=== PATIENT | female | born 1960 | race Caucasian/White ===

== ENCOUNTER 2017-02-05 16:59 | Inpatient (IN) | payer BC ==
[~2017-02-05] VITALS: Ht 154.9 cm; Wt 114.1 kg
--- NOTE | 2017-02-05 17:35 | EMERGENCY ROOM VISIT NOTE ---
History Report prepared by Yoibe: Carmen Noriega Under the Supervision of: Dr. Ramakrishna Torres M.D. First contact with patient: 17:17 Chief Complaint: HYPERTENSION Stated Complaint: ELEVATED BP, COUGH, DOUBLE VISION History of Present Illness The patient is a 56 year old female who presents to the Emergency Room with complaints of constant hypertension and tightness in her chest beginning a week ago. The patient has a history of asthmatic bronchitis and she believes her symptoms to be a result of her this. She notes an episode of double vision in her left eye that lasted 5 minutes a couple days ago. The patient says had now other symptoms during this episode. She is having a difficulty breathing, tightness in her chest, and coughing with exertion. She denies any numbness, weakness, difficulty swallowing, fever, chills, or swelling in her legs. The patient was sent to the ED from [facility]. She has a history of hypertension and denies any recent travel or falls. She is supposed to be on a medication for blood pressure but does not remember take her medicines. She is asymptomatic at present. No focal numbness or weakness. Source of History: patient Onset: a week ago Position: chest Timing: constant Modifying Factors (Worsening): exertion Associated Symptoms: + cough, No fevers, No chills, No weakness, No numbness Note: Pt denies difficulty swallowing, chills, or swelling in her legs. Review of Systems See HPI for pertinent positives & negatives. A total of 10 systems reviewed and were otherwise negative. Past Medical & Surgical Medical Problems: (1) Chest pain (2) HTN (hypertension) (3) Hypertensive urgency Old medical records were reviewed. Nurse's notes were reviewed and I agree with. Hypertension. Denies history cardiac disease known Family History FH: HTN (hypertension) FH: diabetes mellitus Social History Smoking Status: Never Smoker Smokeless Tobacco Use: No Alcohol Use: none Occupation Status: employed Current/Historical Medications No Active Prescriptions or Reported Meds Allergies Coded Allergies: Neomycin (Unverified Allergy, Unknown, RASH, 02/05/17) Physical Exam Vital Signs Date Time Temp Pulse Resp B/P (MAP) Pulse Ox O2 Delivery O2 Flow Rate FiO2 02/05/17 19:33 210/94 95 Room Air 02/05/17 19:08 80 232/112 96 Room Air 02/05/17 18:31 83 18 218/107 98 Room Air 02/05/17 17:23 96 02/05/17 17:03 36.9 86 18 226/119 95 Room Air Physical Exam General: Well developed well appearing middle aged female in no acute distress, breathing comfortably on room air. Normal speech HEENT: Normal cephalic atraumatic. Pupils are equal round and reactive to light. Extraocular movements are intact. Oropharynx is pink with moist mucous membranes. No swelling of the mouth lips or tongue. Neck: Supple with a midline trachea. No meningeal signs or stiffness, no JVD or bruits. No Stridor. Chest: Clear to auscultation bilaterally. No wheezes or rhonchi. No increased work of breathing. Heart: regular rate and rhythm. Abdomen: Soft nontender, nondistended without rebound guarding or rigidity. Extremities: No cyanosis clubbing or edema. No calf tenderness or assymetry Spine/Back. Non tender to palpation. No CVA tenderness Skin: Good turgor without rashes. Neurologic exam: Cranial nerves two through 12 are intact. Motor and sensation are intact and symmetrical throughout. Medical Decision & Procedures ER Provider Diagnostic Interpretation: Radiology results as stated below per my review and radiologist interpretation: SINGLE VIEW CHEST FINDINGS: An AP, portable, upright chest radiograph is obtained. No prior studies are available for comparison at the time of dictation. The examination is degraded by portable technique, large body habitus, and patient rotation. The heart is top normal for projection. The mediastinal contour is unremarkable. The lungs and pleural spaces are clear. No pneumothorax is seen. The bony thorax is grossly intact. IMPRESSION: No acute cardiopulmonary abnormality. Electronically signed by: Edgar Alva M.D. CT OF THE HEAD WITHOUT CONTRAST FINDINGS: Exam is mildly compromised by motion artifact. No acute intracranial hemorrhage, midline shift or mass effect is present. Ventricular system is normal. Basilar cisterns are patent. There are no extra axial collections. Marie-white differentiation is maintained. There are no findings to suggest acute dural sinus thrombosis or acute territorial infarct. Left sphenoid sinus is largely opacified contains air-fluid level. There is also mucosal thickening and secretions within the left frontal and ethmoid sinuses. There are no significant calvarial abnormalities. IMPRESSION: 1. No acute intracranial findings. 2. Left sphenoid, ethmoid and frontal sinusitis, possibly acute. Electronically signed by: Kaushik Doll M.D. Laboratory Results 02/05/17 17:40 Red Blood Count 4.69, Mean Corpuscular Volume 87.0, Mean Corpuscular Hemoglobin 28.6, Mean Corpuscular Hemoglobin Concent 32.8, Mean Platelet Volume 9.7, Neutrophils (%) (Auto) 55.3, Lymphocytes (%) (Auto) 35.5, Monocytes (%) (Auto) 6.4, Eosinophils (%) (Auto) 2.6, Basophils (%) (Auto) 0.1, Neutrophils # (Auto) 4.03, Lymphocytes # (Auto) 2.59, Monocytes # (Auto) 0.47, Eosinophils # (Auto) 0.19, Basophils # (Auto) 0.01 02/05/17 17:40 Test 02/05/17 17:40 02/05/17 17:50 White Blood Count 7.30 K/uL (4.8-10.8) Red Blood Count 4.69 M/uL (4.2-5.4) Hemoglobin 13.4 g/dL (12.0-16.0) Hematocrit 40.8 % (37-47) Mean Corpuscular Volume 87.0 fL (80-100) Mean Corpuscular Hemoglobin 28.6 pg (25-34) Mean Corpuscular Hemoglobin Concent 32.8 g/dl (32-36) Platelet Count 222 K/uL (130-400) Mean Platelet Volume 9.7 fL (7.4-10.4) Neutrophils (%) (Auto) 55.3 % Lymphocytes (%) (Auto) 35.5 % Monocytes (%) (Auto) 6.4 % Eosinophils (%) (Auto) 2.6 % Basophils (%) (Auto) 0.1 % Neutrophils # (Auto) 4.03 K/uL (1.4-6.5) Lymphocytes # (Auto) 2.59 K/uL (1.2-3.4) Monocytes # (Auto) 0.47 K/uL (0.11-0.59) Eosinophils # (Auto) 0.19 K/uL (0-0.5) Basophils # (Auto) 0.01 K/uL (0-0.2) RDW Standard Deviation 47.0 fL (36.4-46.3) RDW Coefficient of Variation 14.7 % (11.5-14.5) Immature Granulocyte % (Auto) 0.1 % Immature Granulocyte # (Auto) 0.01 K/uL (0.00-0.02) Anion Gap 6.0 mmol/L (3-11) Est Creatinine Clear Calc Drug Dose 89.4 ml/min Estimated GFR () 91.4 Estimated GFR (Non- 78.8 BUN/Creatinine Ratio 15.4 (10-20) Calcium Level 8.7 mg/dl (8.5-10.1) Total Bilirubin 0.5 mg/dl (0.2-1) Direct Bilirubin 0.1 mg/dl (0-0.2) Aspartate Amino Transf (AST/SGOT) 24 U/L (15-37) Alanine Aminotransferase (ALT/SGPT) 33 U/L (12-78) Alkaline Phosphatase 74 U/L (45-117) Total Protein 7.6 gm/dl (6.4-8.2) Albumin 3.8 gm/dl (3.4-5.0) Lipase 140 U/L (73-393) Thyroid Stimulating Hormone (TSH) 6.730 uIu/ml (0.300-4.500) Bedside Troponin I < 0.030 ng/ml (0-0.045) Laboratory studies as stated above per my review. Medications Administered Medications (Trade) Dose Ordered Sig/Kenney Route Start Time Stop Time Status Last Admin Dose Admin Clonidine HCl (Catapres Tab) 0.1 mg NOW ONCE PO 02/05/17 19:30 02/05/17 19:31 DC 02/05/17 19:32 0.1 MG ECG Indication: other (chest tightness) Rate (beats per minute): 78 Rhythm: normal sinus Findings: no acute ischemic change, no ectopy, other (Poor R-wave progression) Comparison ECG Date: no prior available ED Course 1718: Past medical records reviewed. The patient was evaluated in room B6, and a complete history and physical examination were performed. 1802: I reevaluated the patient she is asymptomatic and headed to CT scan. 1844: The patients blood pressure is still elevated but otherwise she is asymptotic. I recommended her staying in the hospital and she is considering it. 1906: The patient's blood pressure is still high. She is calling her family to update them about her potential admission. 1930: Clonidine HCl 0.1 mg PO. 1947: Discussed the patient's case with Dr. Thibodeaux. The patient will be evaluated for further management. 1952: Upon reevaluation, the patient is resting. I discussed the results and treatment plan with the patient. She verbalized agreement of the treatment plan. The patient will be evaluated for further management. Medical Decision Differential diagnosis includes but is not limited too: hypertension, cardiac disease, CVA, infection, electrolyte metabolic abnormality. This patient comes in as described above. She was placed in room B6. She's been having intermittent chest pain shortness breath with exertion. Shows a have high blood pressure specimen medication but does not remember to take it. She is asymptomatic at present she had an episode yesterday where she felt like she had some blurry vision more so on her left eye. IV access established,EKG was obtained , multiple blood testing was obtained . her blood pressure did remain elevated here and she was ultimately given clonidine 0.1 mg IV to help slowly bring it down EKG does not show any definite acute ischemic changes CAT scan of her head is unremarkable she is nothing to suggest congestive heart failure pneumonia or pneumothorax initial cardiac biomarkers are unremarkable. I do think she needs to be admitted for further treatment and evaluation of her chest pain to rule out a cardiac disease and further treatment of her blood pressure. I did consult the [facility] so saw her in the ER. Medication Reconcilliation Current Medication List: was personally reviewed by me Blood Pressure Screening Patient's blood pressure: Elevated blood pressure Patient will be admitted for further treatment Consults Time Called: 1939 Consulting Physician: Dr. Amarjit Orellana Returned Call: 1947 Discussed the patient's case. The patient will be evaluated for further management. Impression Primary Impression: Chest pain Additional Impression: HTN (hypertension) Scribe Attestation The scribe's documentation has been prepared under my direction and personally reviewed by me in its entirety. I confirm that the note above accurately reflects all work, treatment, procedures, and medical decision making performed by me. Departure Information Dispostion Being Evaluated By Hospitalist Prescriptions No Active Prescriptions or Reported Meds Referrals Bonilla Celis M.D. (PCP) Patient Instructions [facility] Problem Qualifiers
[2017-02-05 17:56] LABS: BASO % 0.1 %; BASO ABS # 0.01 K/uL (0-0.2); COMPLETE YES; EOS % 2.6 %; HEMATOCRIT 40.8 % (37-47); IG% 0.1 %; LYMPH % 35.5 %; LYMPH ABS # 2.59 K/uL (1.2-3.4); MEAN CORPUSCULAR HEMOGLOBIN 28.6 pg (25-34); MEAN CORPUSCULAR HGB CONC 32.8 g/dl (32-36); MEAN PLATELET VOLUME 9.7 fL (7.4-10.4); MONO % 6.4 %; NEUT % 55.3 %; PLATELET COUNT 222 K/uL (130-400); RED BLOOD COUNT 4.69 M/uL (4.2-5.4)
--- NOTE | 2017-02-05 17:59 | DIAGNOSTIC IMAGING REPORT ---
SINGLE VIEW CHEST CLINICAL HISTORY: Atypical chest pain. FINDINGS: An AP, portable, upright chest radiograph is obtained. No prior studies are available for comparison at the time of dictation. The examination is degraded by portable technique, large body habitus, and patient rotation. The heart is top normal for projection. The mediastinal contour is unremarkable. The lungs and pleural spaces are clear. No pneumothorax is seen. The bony thorax is grossly intact. IMPRESSION: No acute cardiopulmonary abnormality. Electronically signed by: Edgar Alva M.D. 02/05/2017 5:57 PM Dictated Date/Time: 02/05/2017 5:56 PM
[2017-02-05 18:19] LABS: BUN/CREATININE RATIO 15.4 (10-20); CALCIUM 8.7 mg/dl (8.5-10.1); CREATININE 0.83 mg/dl (0.60-1.20); POTASSIUM 3.3 mmol/L (3.5-5.1)
--- NOTE | 2017-02-05 18:22 | DIAGNOSTIC IMAGING REPORT ---
CT OF THE HEAD WITHOUT CONTRAST CLINICAL HISTORY: Episode of blurry vision in left eye. COMPARISON STUDY: No previous studies for comparison. CT DOSE: 601.98 mGy.cm TECHNIQUE: Helical axial images of the head were obtained without IV contrast. Automated exposure control was utilized for the study. A dose lowering technique was utilized adhering to the principles of ALARA. FINDINGS: Exam is mildly compromised by motion artifact. No acute intracranial hemorrhage, midline shift or mass effect is present. Ventricular system is normal. Basilar cisterns are patent. There are no extra axial collections. Marie-white differentiation is maintained. There are no findings to suggest acute dural sinus thrombosis or acute territorial infarct. Left sphenoid sinus is largely opacified contains air-fluid level. There is also mucosal thickening and secretions within the left frontal and ethmoid sinuses. There are no significant calvarial abnormalities. IMPRESSION: 1. No acute intracranial findings. 2. Left sphenoid, ethmoid and frontal sinusitis, possibly acute. Electronically signed by: Kaushik Doll M.D. 02/05/2017 6:20 PM Dictated Date/Time: 02/05/2017 6:13 PM
[2017-02-05 18:30] LABS: THYROID STIMULATING HORMONE 6.73 uIu/ml (0.300-4.500)
[2017-02-05] MEDS ORDERED: CLONIDINE HCL 0.1 MG TAB PO ONE (19:30)
[2017-02-05] MEDS ORDERED: POLYETHYLENE (MIRALAX) 17 GM PACK PO PRN (20:30)
[2017-02-05] MEDS ORDERED: ALUMINUM/MAGNESIUM/SIMETH (MAALOX MAX) 30 ML UDC PO PRN (20:30)
[2017-02-05] MEDS ORDERED: ACETAMINOPHEN 325 MG TAB PO PRN (20:30)
[2017-02-05] MEDS ORDERED: ONDANSETRON INJ 2 MG/ML 2 ML VIAL IV PRN (20:30)
[2017-02-05] MEDS ORDERED: POTASSIUM CHLORIDE 10 MEQ TABCR PO STA (20:37)
[2017-02-05] MEDS ORDERED: IV FLUIDS COMPLETED PRN (20:45)
[2017-02-05 21:00] VITALS: BP 211/115; PULSE 90; TEMP 37; O2SAT 92; Ht 154.9 cm; Wt 114.1 kg
--- NOTE | 2017-02-05 21:27 | History and Physical ---
History & Physical Date & Time of Service: Feb 05, 2017 at 21:20 Chief Complaint: Chest Pain, Hypertensive Urgency Primary Care Physician: Bonilla Celis M.D. History of Present Illness Source: patient Patient is a 56yo female who presents to the hospital after being seen at urgent care today and being found to have severely elevated BP. She was referred to the hospital for furhter evaluation. She states she went to urgent care today because of an incident yesterday where she had blurry vision that last a few minutes and she was worried she would go blind. She states she was seen by her PCP over 6 months ago and was started on BP meds but she did not take them after the first 6 weeks and has not followed up. She states she didn' t take the meds because she kept forgetting. Patient states she feels fine right now and denies any complaints except when she exerts herself, then with exertion she feels chest pain and SOB. She denies any diaphoresis, palpitations , N/V, MENDOZA, dizziness, lightheadedness or visual changes today. She states she thought she had bronchitis from allergies/hay exposure after [place] fair but has not had wheezing for several weeks now. She has occasional non productive cough. She denies any nasal symptoms. Past Medical/Surgical History PMHx: HTN SurgHx: Tubal ligation knee surgery breast lumpectomy Family History FH: HTN (hypertension) FH: diabetes mellitus Social History Smoking Status: Never Smoker Smokeless Tobacco Use: No Occupational Status: employed Multi-Drug Resistant Organisms History of MDRO: No Allergies Coded Allergies: Neomycin (Unverified Allergy, Unknown, RASH, 02/05/17) Home Medications No Active Prescriptions or Reported Meds Review of Systems Full 10 systems were reviewed; please see HPI for pertinent positives and negatives. Physical Exam Vital Signs Date Time Temp Pulse Resp B/P (MAP) Pulse Ox O2 Delivery O2 Flow Rate FiO2 02/05/17 20:51 36.9 80 18 187/87 95 02/05/17 20:35 187/87 02/05/17 19:33 210/94 95 Room Air 02/05/17 19:08 80 232/112 96 Room Air 02/05/17 18:31 83 18 218/107 98 Room Air 02/05/17 17:23 96 02/05/17 17:03 36.9 86 18 226/119 95 Room Air General Appearance: WD/WN, no apparent distress Head: normocephalic, atraumatic Eyes: PERRL, EOMI ENT: hearing grossly normal Neck: supple, no JVD, no carotid bruits, trachea midline Respiratory/Chest: lungs clear, normal breath sounds, no respiratory distress, + decreased breath sounds Cardiovascular: regular rate, rhythm, no edema, no gallop, no JVD, no murmur Abdomen/GI: normal bowel sounds, non tender, soft, no organomegaly Back: normal inspection, no CVA tenderness Extremities/Musculoskelatal: no calf tenderness, normal capillary refill Neurologic/Psych: no motor/sensory deficits, alert, normal mood/affect, oriented x 3 Skin: normal color, warm/dry, no rash Diagnostics Laboratory Results Results Past 24 Hours Test 02/05/17 17:40 02/05/17 17:50 02/05/17 21:08 Range/Units White Blood Count 7.30 4.8-10.8 K/uL Red Blood Count 4.69 4.2-5.4 M/uL Hemoglobin 13.4 12.0-16.0 g/dL Hematocrit 40.8 37-47 % Mean Corpuscular Volume 87.0 80-100 fL Mean Corpuscular Hemoglobin 28.6 25-34 pg Mean Corpuscular Hemoglobin Concent 32.8 32-36 g/dl Platelet Count 222 130-400 K/uL Mean Platelet Volume 9.7 7.4-10.4 fL Neutrophils (%) (Auto) 55.3 % Lymphocytes (%) (Auto) 35.5 % Monocytes (%) (Auto) 6.4 % Eosinophils (%) (Auto) 2.6 % Basophils (%) (Auto) 0.1 % Neutrophils # (Auto) 4.03 1.4-6.5 K/uL Lymphocytes # (Auto) 2.59 1.2-3.4 K/uL Monocytes # (Auto) 0.47 0.11-0.59 K/uL Eosinophils # (Auto) 0.19 0-0.5 K/uL Basophils # (Auto) 0.01 0-0.2 K/uL RDW Standard Deviation 47.0 36.4-46.3 fL RDW Coefficient of Variation 14.7 11.5-14.5 % Immature Granulocyte % (Auto) 0.1 % Immature Granulocyte # (Auto) 0.01 0.00-0.02 K/uL Sodium Level 138 136-145 mmol/L Potassium Level 3.3 3.5-5.1 mmol/L Chloride Level 104 98-107 mmol/L Carbon Dioxide Level 28 21-32 mmol/L Anion Gap 6.0 3-11 mmol/L Blood Urea Nitrogen 13 7-18 mg/dl Creatinine 0.83 0.60-1.20 mg/dl Est Creatinine Clear Calc Drug Dose 89.4 ml/min Estimated GFR () 91.4 Estimated GFR (Non- 78.8 BUN/Creatinine Ratio 15.4 10-20 Random Glucose 89 70-99 mg/dl Calcium Level 8.7 8.5-10.1 mg/dl Total Bilirubin 0.5 0.2-1 mg/dl Direct Bilirubin 0.1 0-0.2 mg/dl Aspartate Amino Transf (AST/SGOT) 24 15-37 U/L Alanine Aminotransferase (ALT/SGPT) 33 12-78 U/L Alkaline Phosphatase 74 45-117 U/L Total Protein 7.6 6.4-8.2 gm/dl Albumin 3.8 3.4-5.0 gm/dl Lipase 140 73-393 U/L Thyroid Stimulating Hormone (TSH) 6.730 0.300-4.500 uIu/ml Bedside Troponin I < 0.030 0-0.045 ng/ml Impression Assessment and Plan HTN URGENCY: -received a dose of clonidine in the ER -will start with lisinopril and titrate dose upwards as needed -obtain TTE -serial CM -check T4 CHEST PAIN: with exertion -serial CM -TTE -no EKG changes, repeat in AM -monitor in Tele -Consult Cardiology POSSIBLE HYPOTHYROIDISM: -elevated TSH, awaiting free T4 -no prior history Level of Care Telemetry VTE Prophylaxis VTE Risk Assessment Done? Y/N: Yes Risk Level: Moderate
[2017-02-05] MEDS: ENOXAPARIN 40 MG/0.4 ML SYR SC SCH (22:30)
[2017-02-05 23:09] VITALS: BP 195/104; PULSE 79; TEMP 36.8; O2SAT 94
[2017-02-06] VITALS (8 sets, daily range): BP systolic 156–187; BP diastolic 80–98; PULSE 64–88; TEMP 36.7–37; O2SAT 95–98
[2017-02-06] MEDS ORDERED: LISINOPRIL 5 MG TAB PO STA (00:38)
[2017-02-06 02:47] LABS: HEMATOCRIT 38.6 % (37-47); MEAN CELL VOLUME 88.1 fL (80-100); MEAN CORPUSCULAR HEMOGLOBIN 28.8 pg (25-34); MEAN CORPUSCULAR HGB CONC 32.6 g/dl (32-36); MEAN PLATELET VOLUME 9.9 fL (7.4-10.4); PLATELET COUNT 232 K/uL (130-400); RED BLOOD COUNT 4.38 M/uL (4.2-5.4); WHITE BLOOD COUNT 7.17 K/uL (4.8-10.8)
[2017-02-06 03:08] LABS: BUN/CREATININE RATIO 12.6 (10-20); CALCIUM 8.5 mg/dl (8.5-10.1); CREATININE 0.86 mg/dl (0.60-1.20); POTASSIUM 3.6 mmol/L (3.5-5.1)
[2017-02-06 03:11] LABS: CKMB/CK RATIO 0.3 (0-3.0)
[2017-02-06 03:18] LABS: CHOLESTEROL/HDL RATIO 3.8; THYROID STIMULATING HORMONE 7.87 uIu/ml (0.300-4.500)
[2017-02-06] MEDS: ASPIRIN 81 MG ECTAB PO SCH (08:10)
[2017-02-06] MEDS ORDERED: LISINOPRIL 10 MG TAB PO SCH (09:00)
[2017-02-06 11:06] LABS: CKMB/CK RATIO 0.4 (0-3.0)
[2017-02-06] MEDS ORDERED: LISINOPRIL 10 MG TAB PO ONE (11:39)
--- NOTE | 2017-02-06 12:05 | ECHOCARDIOGRAM REPORT ---
*NOTICE TO RECEIVING LIBERTARIAN AGENCY This information is strictly Confidential and protected under [place] law. [place] law prohibits you from making any further disclosure of this information unless further disclosure is expressly permitted by the written consent of the person to whom it pertains or is authorized by law. A general authorization for the release of medical or other information is not sufficient for this purpose. Hospital accepts no responsibility if the information is made available to any other person, INCLUDING THE PATIENT. Interpretation Summary * Name: CORBY MILLS Study Date: 02/06/2017 11:17 AM BP: 162/80 mmHg * Patient Location: [facility] HR: 79 * : 1960 (M/d/yyyy) Gender: Female Height: 61 in * Age: 56 yrs Ethnicity: CA Weight: 254 lb * Ordering Physician: Jeanine Maki * Referring Physician: Ivy No * Performed By: Sally Ybarra RCS * * Reason For Study: Chest pain * BSA: 2.1 m2 * -- Conclusions -- * Normal LV chamber size with mild concentric LVH. * Normal LV systolic function, EF 60-65%. * No segmental left ventricular wall motion abnormalities are noted. * Grade I diastolic dysfunction. * No significant valvular pathology. Procedure Details * Left Ventricle The left ventricle is normal in size. There is mild concentric left ventricular hypertrophy. Ejection Fraction = 60-65%. Left ventricular systolic function is normal. No segmental left ventricular wall motion abnormalities are noted. The left ventricular wall motion is normal. * Right Ventricle The right ventricular cavity size is normal (basal dimension <4.2 cm in right ventricular apical 4-chamber view). The right ventricular systolic function is normal as assessed by tricuspid annular plane systolic excursion (TAPSE) (normal >1.5 cm). * Atria The left atrial size is normal. Right atrial size is normal. No ASD detected; PFO is not assessed. * Mitral Valve The mitral valve is normal in structure and function. * Tricuspid Valve The tricuspid valve is normal in structure and function. * Aortic Valve The aortic valve is normal in structure and function. * Pulmonic Valve The pulmonary valve is not well seen, but the Doppler examination is normal without significant regurgitation or stenosis. * Great Vessels The aortic root is normal size. * Pericardium/Pleural Epicardial fat pad present. * Left Ventricular Diastolic Function Grade I diastolic dysfunction, (abnormal relaxation pattern). * * MMode 2D Measurements and Calculations * IVSd 1.1 cm * * LVIDd 5.2 cm * LVIDs 2.5 cm * LVPWd 1.2 cm * * IVS/LVPW 0.97 * FS 52.2 % * EDV(Teich) 128.8 ml * ESV(Teich) 21.9 ml * EF(Teich) 83.0 % * * EDV(cubed) 139.7 ml * ESV(cubed) 15.2 ml * EF(cubed) 89.1 % * * LV mass(C)d 235.7 grams * LV mass(C)dI 112.7 grams/m\S\2 * * SV(Teich) 107.0 ml * SI(Teich) 51.2 ml/m\S\2 * SV(cubed) 124.4 ml * SI(cubed) 59.5 ml/m\S\2 * * Ao root diam 2.8 cm * Ao root area 6.0 cm\S\2 * * LVOT diam 2.0 cm * LVOT area 3.3 cm\S\2 * * EDV(MOD-sp4) 100.4 ml * ESV(MOD-sp4) 40.5 ml * EF(MOD-sp4) 59.7 % * * EDV(MOD-sp2) 67.5 ml * ESV(MOD-sp2) 25.5 ml * EF(MOD-sp2) 62.3 % * * SV(MOD-sp4) 59.9 ml * SI(MOD-sp4) 28.7 ml/m\S\2 * * SV(MOD-sp2) 42.1 ml * SI(MOD-sp2) 20.1 ml/m\S\2 * * * Doppler Measurements and Calculations * MV E max padmini 63.6 cm/sec * MV A max padmini 96.5 cm/sec * * MV E/A 0.66 * * MV dec time 0.24 sec * * Ao V2 max 125.9 cm/sec * Ao max PG 6.3 mmHg * Ao max PG (full) 2.6 mmHg * BRIAN(V,A) 2.5 cm\S\2 * BRIAN(V,D) 2.5 cm\S\2 * * LV V1 max PG 3.7 mmHg * * LV V1 max 96.7 cm/sec * * * *
--- NOTE | 2017-02-06 12:22 | CARDIOLOGY CONSULTATION ---
DATE OF CONSULTATION: 02/06/2017 CONSULTATION REQUESTED BY: Dr. Christina. REASON FOR CONSULTATION: Uncontrolled hypertension with hypertensive urgency. HISTORY OF PRESENT ILLNESS: Mrs. Easton is a very pleasant 56-year-old woman who has never been seen by cardiology before. She presented to [facility] with a report of uncontrolled hypertension. The patient states her symptoms started several weeks ago, when she started developing a little bit of bronchitis . She did not think much of it; however, 2 days prior to presentation, she developed some blurred vision while she was sitting working on the computer. At that time, she mentioned it to her family and they made her go and see a physician. She went to urgent care, her blood pressure was significantly elevated and she was directed to the Emergency Department. Upon presentation to the Emergency Department here at [facility], her blood pressure was 226/119. EKG and cardiac enzymes were obtained and they were unremarkable and she was admitted to telemetry for further monitoring. She was also started on lisinopril 10 mg for blood pressure control. Currently, she states that she feels fine, but upon further questioning, she does admit that she has been getting occasional chest tightness with exertion over the last several weeks. She states that it is nothing severe. It is just something that she happened to notice, but was not too concerned. She states whenever it occurred, she feels her chest as tight. She stopped to catch her breath for a few minutes and will be able to carry on her way. Otherwise, she denies any significant shortness of breath, palpitations, lightheadedness, dizziness or syncope. Of note, the patient was seen by her primary care physician, Dr. Celis approximately 6 months ago and she was placed on blood pressure medications. She does not remember the name of the medication. She states that she took the pill for about 6 weeks, but then after that just forgot to take it anymore. PAST SURGICAL HISTORY: 1. Tubal ligation. 2. Knee surgery. 3. Breast lumpectomy. MEDICAL ILLNESSES: 1. Hypertension. 2. Obesity. FAMILY HISTORY: Remarkable for father who had underwent CABG in his early 60s. SOCIAL HISTORY: Denies any alcohol, tobacco or recreational drug use. She is . She lives at home with her . She has 4 children. 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 She does not exercise. ALLERGIES: NEOMYCIN. MEDICATIONS AT HOME. Denies. PHYSICAL EXAMINATION: VITALS: Temperature 36.8, pulse 69, respiratory rate 12, and blood pressure 156/88. GENERAL: Awake, alert, and oriented x3, in no acute distress. HEENT: Normocephalic and atraumatic. Pupils equal, round, and reactive to light and accommodation. Extraocular muscles intact. Anicteric sclerae. Moist mucous membranes. NECK: No JVD and no bruit. CARDIOVASCULAR: Regular. Positive S4. Normal S1 and S2. No S3. No murmurs or rubs. PULMONARY: Clear to auscultation bilaterally. No rales, rhonchi, or wheezing. ABDOMEN: Bowel sounds x4. Soft. No rebound, guarding, or tenderness. No organomegaly. EXTREMITIES: No clubbing, cyanosis or edema. +2 pedal pulses bilaterally. SKIN: Warm and dry. TEST RESULTS: A 12-lead EKG performed in the Emergency Department independently reviewed at this time shows normal sinus rhythm at 78 beats per minute, normal axis, normal intervals, and poor R-wave progression across the precordium. No significant change compared to previous study of 2001. LABORATORY STUDIES OF SIGNIFICANCE: Troponin negative x3. CPK of 214 followed by 240. Total cholesterol 154, LDL 88, HDL 41, and triglycerides 123. Sodium 138, potassium 3.6, BUN 11, and creatinine 0.9. IMPRESSION: 1. Hypertensive urgency with blurred vision. 2. Uncontrolled hypertension. 3. Obesity. 4. Chest discomfort with exertion. RECOMMENDATIONS: It was my pleasure to see Mrs. Easton in consultation today. From a cardiac standpoint, I agree that she is suffering from hypertensive urgency and given the fact that her blood pressure is still not controlled, I will double her lisinopril to 20 mg daily. I would like to see her blood pressure controlled before she is discharged to home and will likely need to keep her another night. Otherwise, given her chest discomfort with exertion, I do believe she would benefit from an ischemic evaluation; however, we will hold off on doing it in the setting of hypertensive urgency given the fact that exercise would obviously cause her blood pressure to significantly increase. So instead, we will get her blood pressure under control at this time, discharge her to home and have her follow up as an outpatient in 1-2 weeks for an ischemic evaluation. She has also been started on aspirin and she does not appear to be in need for statin. KIA
[2017-02-06] MEDS ORDERED: ALBUTEROL 0.083% NEBU SOLN 3 ML VIAL INH ONE (14:30)
[2017-02-06] MEDS ORDERED: GUAIFENESIN/CODEINE 200MG/20MG 10ML UDC PO PRN (14:30)
[2017-02-06] MEDS: ENOXAPARIN 40 MG/0.4 ML SYR SC SCH (21:36)
[2017-02-06] MEDS: ALBUTEROL 0.083% NEBU SOLN 3 ML VIAL INH PRN (23:09)
--- NOTE | 2017-02-06 23:39 | Progress Note ---
Medicine Progress Note Date & Time of Visit: Feb 06, 2017 at 13:18. 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 Objective Last 8 Hrs Date Time Temp Pulse Resp B/P (MAP) Pulse Ox O2 Delivery O2 Flow Rate FiO2 02/06/17 12:00 Room Air 02/06/17 11:45 37.0 64 16 171/83 (112) 95 Room Air 02/06/17 08:04 36.8 69 20 156/88 (110) 97 Room Air 02/06/17 08:00 Room Air Physical Exam: GEN: obese, in no acute distress, alert and appropriate HEENT: NC/AT, PERRL, normal sclerae, MMM CARDIO: reg rate, S1/2 heard without m/g/r, no JVD, no edema LUNGS: CTA bilaterally, no crackles, rales or wheezes, good diaphragmatic excursion ABD: soft, non-tender, non-distended, no rebound or guarding, +BS EXTREMITY: RP and DP palpable 2+ bilat, no LE swelling or edema, extremities are warm and well-perfused NEURO: CN 2-12 grossly intact MUSC: 5/5 strength throughout, no focal deficits SKIN: warm and dry Laboratory Results: 02/06/17 02:32 02/06/17 02:32 Test 02/05/17 17:40 02/05/17 17:50 02/05/17 21:26 02/06/17 02:32 Immature Granulocyte % (Auto) 0.1 % White Blood Count 7.30 K/uL (4.8-10.8) Red Blood Count 4.69 M/uL (4.2-5.4) 4.38 M/uL (4.2-5.4) Hemoglobin 13.4 g/dL (12.0-16.0) Hematocrit 40.8 % (37-47) Mean Corpuscular Volume 87.0 fL (80-100) 88.1 fL (80-100) Mean Corpuscular Hemoglobin 28.6 pg (25-34) 28.8 pg (25-34) Mean Corpuscular Hemoglobin Concent 32.8 g/dl (32-36) 32.6 g/dl (32-36) Platelet Count 222 K/uL (130-400) Mean Platelet Volume 9.7 fL (7.4-10.4) 9.9 fL (7.4-10.4) Neutrophils (%) (Auto) 55.3 % Lymphocytes (%) (Auto) 35.5 % Monocytes (%) (Auto) 6.4 % Eosinophils (%) (Auto) 2.6 % Basophils (%) (Auto) 0.1 % Neutrophils # (Auto) 4.03 K/uL (1.4-6.5) Lymphocytes # (Auto) 2.59 K/uL (1.2-3.4) Monocytes # (Auto) 0.47 K/uL (0.11-0.59) Eosinophils # (Auto) 0.19 K/uL (0-0.5) Basophils # (Auto) 0.01 K/uL (0-0.2) Immature Granulocyte # (Auto) 0.01 K/uL (0.00-0.02) Total Bilirubin 0.5 mg/dl (0.2-1) Direct Bilirubin 0.1 mg/dl (0-0.2) Aspartate Amino Transf (AST/SGOT) 24 U/L (15-37) Alanine Aminotransferase (ALT/SGPT) 33 U/L (12-78) Alkaline Phosphatase 74 U/L (45-117) Total Protein 7.6 gm/dl (6.4-8.2) Albumin 3.8 gm/dl (3.4-5.0) Lipase 140 U/L (73-393) Bedside Troponin I < 0.030 ng/ml (0-0.045) Prothrombin Time 11.0 SECONDS (9.0-12.0) Prothromb Time International Ratio 1.0 (0.9-1.1) RDW Standard Deviation 47.6 fL (36.4-46.3) RDW Coefficient of Variation 14.7 % (11.5-14.5) Anion Gap 4.0 mmol/L (3-11) Est Creatinine Clear Calc Drug Dose 85.6 ml/min Estimated GFR () 87.5 Estimated GFR (Non- 75.5 BUN/Creatinine Ratio 12.6 (10-20) Calcium Level 8.5 mg/dl (8.5-10.1) Triglycerides Level 123 mg/dl (0-150) Cholesterol Level 154 mg/dl (0-200) HDL Cholesterol 41 mg/dl LDL Cholesterol, Calculated 88 mg/dl VLDL Cholesterol, Calculated 25 mg/dl Cholesterol/HDL Ratio 3.8 Thyroid Stimulating Hormone (TSH) 7.870 uIu/ml (0.300-4.500) Free Thyroxine 0.94 ng/dl (0.80-1.60) Hepatitis C Antibody Screen NEG (NEG) Test 02/06/17 10:24 Total Creatine Kinase 240 U/L (26-192) Creatine Kinase MB 0.9 ng/ml (0.5-3.6) Creatine Kinase MB Ratio 0.4 (0-3.0) Troponin I < 0.015 ng/ml (0-0.045) Last 24 Hours Test 02/05/17 17:40 02/05/17 17:50 02/05/17 21:26 02/06/17 02:32 White Blood Count 7.30 K/uL 7.17 K/uL Red Blood Count 4.69 M/uL 4.38 M/uL Hemoglobin 13.4 g/dL 12.6 g/dL Hematocrit 40.8 % 38.6 % Mean Corpuscular Volume 87.0 fL 88.1 fL Mean Corpuscular Hemoglobin 28.6 pg 28.8 pg Mean Corpuscular Hemoglobin Concent 32.8 g/dl 32.6 g/dl Platelet Count 222 K/uL 232 K/uL Mean Platelet Volume 9.7 fL 9.9 fL Neutrophils (%) (Auto) 55.3 % Lymphocytes (%) (Auto) 35.5 % Monocytes (%) (Auto) 6.4 % Eosinophils (%) (Auto) 2.6 % Basophils (%) (Auto) 0.1 % Neutrophils # (Auto) 4.03 K/uL Lymphocytes # (Auto) 2.59 K/uL Monocytes # (Auto) 0.47 K/uL Eosinophils # (Auto) 0.19 K/uL Basophils # (Auto) 0.01 K/uL RDW Standard Deviation 47.0 fL 47.6 fL RDW Coefficient of Variation 14.7 % 14.7 % Immature Granulocyte % (Auto) 0.1 % Immature Granulocyte # (Auto) 0.01 K/uL Sodium Level 138 mmol/L 138 mmol/L Potassium Level 3.3 mmol/L 3.6 mmol/L Chloride Level 104 mmol/L 104 mmol/L Carbon Dioxide Level 28 mmol/L 30 mmol/L Anion Gap 6.0 mmol/L 4.0 mmol/L Blood Urea Nitrogen 13 mg/dl 11 mg/dl Creatinine 0.83 mg/dl 0.86 mg/dl Est Creatinine Clear Calc Drug Dose 89.4 ml/min 85.6 ml/min Estimated GFR () 91.4 87.5 Estimated GFR (Non- 78.8 75.5 BUN/Creatinine Ratio 15.4 12.6 Random Glucose 89 mg/dl 114 mg/dl Calcium Level 8.7 mg/dl 8.5 mg/dl Total Bilirubin 0.5 mg/dl Direct Bilirubin 0.1 mg/dl Aspartate Amino Transf (AST/SGOT) 24 U/L Alanine Aminotransferase (ALT/SGPT) 33 U/L Alkaline Phosphatase 74 U/L Total Protein 7.6 gm/dl Albumin 3.8 gm/dl Lipase 140 U/L Thyroid Stimulating Hormone (TSH) 6.730 uIu/ml 7.870 uIu/ml Bedside Troponin I < 0.030 ng/ml Prothrombin Time 11.0 SECONDS Prothromb Time International Ratio 1.0 Total Creatine Kinase 214 U/L Creatine Kinase MB 0.7 ng/ml Creatine Kinase MB Ratio 0.3 Troponin I < 0.015 ng/ml Triglycerides Level 123 mg/dl Cholesterol Level 154 mg/dl HDL Cholesterol 41 mg/dl LDL Cholesterol, Calculated 88 mg/dl VLDL Cholesterol, Calculated 25 mg/dl Cholesterol/HDL Ratio 3.8 Free Thyroxine 0.94 ng/dl Hepatitis C Antibody Screen NEG Test 02/06/17 10:24 Total Creatine Kinase 240 U/L Creatine Kinase MB 0.9 ng/ml Creatine Kinase MB Ratio 0.4 Troponin I < 0.015 ng/ml Assessment & Plan 56 yo F with no medical problems who is low risk for CAD presents with elevated blood pressure associated with chest pain with exertion, resolved with rest. 1. Hypertensive urgency-Serial cardiac enzymes were negative. Appreciate Cardiology seeing her. TTE performed and is WNL. Lisinopril started with uptitration. Monitor overnight for response. Plan for stress test as outpatient. 2. Chest pain with exertion-ACS workup negative overnight, requires outpatient stress test for risk stratification. 3. Hypothyroidism-mildly elevated TSH and asymptomatic at this time. Defer to outpatient PCP for recheck/workup/start treatment as necessary 4. Obesity 5. Cough-residual from URI 4 weeks ago. Albuterol neb PRN with T3 PRN for symptom relief. 6, H/o noncompliance with antihypertensives in the past. DVT-Lovenox Full Code [facility]po[facility] Current Inpatient Medications: Current Inpatient Medications Medications (Trade) Dose Ordered Sig/Kenney Route Start Time Stop Time Status Last Admin Dose Admin Enoxaparin Sodium (Lovenox Inj) 40 mg Q24H SC 02/05/17 22:00 03/07/17 21:59 02/05/17 22:30 40 MG Acetaminophen (Tylenol Tab) 650 mg Q4H PRN PO 02/05/17 20:30 03/07/17 20:29 Al Hydrox/Mg Hydrox/Simethicone (Maalox Max Susp) 15 ml Q4H PRN PO 02/05/17 20:30 03/07/17 20:29 Ondansetron HCl (Zofran Inj) 4 mg Q6H PRN IV 02/05/17 20:30 03/07/17 20:29 Aspirin (Ecotrin Tab) 81 mg QAM PO 02/06/17 09:00 03/08/17 08:59 02/06/17 08:10 81 MG Polyethylene (Miralax Powder Packet) 17 gm DAILY PRN PO 02/05/17 20:30 03/07/17 20:29 Miscellaneous (Iv Fluids Completed) 1 ea PRN PRN N/A 02/05/17 20:45 02/05/18 20:44 Lisinopril (Zestril Tab) 20 mg QAM PO 02/07/17 09:00 03/08/17 08:59
[2017-02-07] VITALS (8 sets, daily range): BP systolic 141–191; BP diastolic 82–95; PULSE 59–97; TEMP 36.6–36.8; O2SAT 93–98
[2017-02-07] MEDS: ALBUTEROL 0.083% NEBU SOLN 3 ML VIAL INH PRN ×2 (07:37→19:23)
[2017-02-07] MEDS ORDERED: LISINOPRIL 20 MG TAB PO SCH (08:00)
[2017-02-07] MEDS: ASPIRIN 81 MG ECTAB PO SCH (08:14)
[2017-02-07] MEDS ORDERED: LISINOPRIL 20 MG TAB PO ONE (13:37)
--- NOTE | 2017-02-07 13:43 | Cardiology Follow-Up ---
Subjective Subjective Date of Service: Feb 07, 2017. Pt evaluation today including: conversation w/ patient, physical exam, chart review, lab review, review of studies, review of inpatient medication list Additional Details: Pt seen and examined, states that she feels well. Denies cp, sob, palpitations, lightheadedness or dizziness. Review of Systems Respiratory: No see HPI, No cough, No sputum, No wheezing, No shortness of breath, No dyspnea on exertion, No dyspnea at rest, No hemoptysis, No problem reported Cardiac: No see HPI, No chest pain, No orthopnea, No PND, No edema, No claudication, No palpitations, No problem reported Objective Vital Signs Last Vital Signs Documentation Date Time Temp Pulse Resp B/P (MAP) Pulse Ox O2 Delivery O2 Flow Rate FiO2 02/07/17 13:28 191/95 (127) 02/07/17 10:00 Room Air 02/07/17 07:37 59 14 93 02/07/17 07:20 36.8 Physical Exam: General Appearance: WD/WN, no apparent distress Eyes: bilateral eyes normal inspection, bilateral eyes PERRL, bilateral eyes EOMI ENT: normal ENT inspection, hearing grossly normal, pharynx normal Neck: supple, no adenopathy, thyroid normal, no JVD Respiratory/Chest: chest non-tender, lungs clear, normal breath sounds, no respiratory distress, no accessory muscle use Cardiovascular: regular rate, rhythm, no edema, no JVD, no murmur, + gallop/S4 Abdomen: normal bowel sounds, non tender, soft, no organomegaly, no pulsatile mass Extremities: normal inspection, no pedal edema, no calf tenderness Neurologic/Psychiatric: 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 hypertensive urgency symptoms resolved lisinopril uptitrated yet, bp remains 191/95 will give extra 20mg of lisinopril now on top of this AM's dose would not d/c to home until bp <160 systolic can add amlodipine if needed for further bp control will need bmp in 1 week scheduled for eval with PCP on 02/11, recommend she keep appointment to follow bp also schedule outpatient stress echocardiogram f/u with cardiology office in 1 month
--- NOTE | 2017-02-07 13:54 | Progress Note ---
Medicine Progress Note Date & Time of Visit: Feb 07, 2017 at 13:49. Subjective tolerating pO ambulatory denies chest pain BP 140-150 overnight Objective Last 8 Hrs Date Time Temp Pulse Resp B/P (MAP) Pulse Ox O2 Delivery O2 Flow Rate FiO2 02/07/17 13:38 184/92 (122) 02/07/17 13:28 191/95 (127) 02/07/17 10:00 Room Air 02/07/17 07:37 59 14 93 Room Air 02/07/17 07:20 36.8 68 16 158/84 (108) 96 Room Air Physical Exam: GEN: obese, in no acute distress, alert and appropriate HEENT: NC/AT, normal sclerae, MMM CARDIO: reg rate, S1/2 heard without m/g/r, no JVD, no edema LUNGS: CTA bilaterally, no crackles, rales or wheezes, good diaphragmatic excursion ABD: soft, non-tender, non-distended, no rebound or guarding, +BS EXTREMITY: RP and DP palpable 2+ bilat, no LE swelling or edema, extremities are warm and well-perfused NEURO: CN 2-12 grossly intact MUSC: 5/5 strength throughout, no focal deficits SKIN: warm and dry Laboratory Results: 02/06/17 02:32 02/06/17 02:32 Test 02/05/17 17:40 02/05/17 17:50 02/05/17 21:26 02/06/17 02:32 Immature Granulocyte % (Auto) 0.1 % White Blood Count 7.30 K/uL (4.8-10.8) Red Blood Count 4.69 M/uL (4.2-5.4) 4.38 M/uL (4.2-5.4) Hemoglobin 13.4 g/dL (12.0-16.0) Hematocrit 40.8 % (37-47) Mean Corpuscular Volume 87.0 fL (80-100) 88.1 fL (80-100) Mean Corpuscular Hemoglobin 28.6 pg (25-34) 28.8 pg (25-34) Mean Corpuscular Hemoglobin Concent 32.8 g/dl (32-36) 32.6 g/dl (32-36) Platelet Count 222 K/uL (130-400) Mean Platelet Volume 9.7 fL (7.4-10.4) 9.9 fL (7.4-10.4) Neutrophils (%) (Auto) 55.3 % Lymphocytes (%) (Auto) 35.5 % Monocytes (%) (Auto) 6.4 % Eosinophils (%) (Auto) 2.6 % Basophils (%) (Auto) 0.1 % Neutrophils # (Auto) 4.03 K/uL (1.4-6.5) Lymphocytes # (Auto) 2.59 K/uL (1.2-3.4) Monocytes # (Auto) 0.47 K/uL (0.11-0.59) Eosinophils # (Auto) 0.19 K/uL (0-0.5) Basophils # (Auto) 0.01 K/uL (0-0.2) Immature Granulocyte # (Auto) 0.01 K/uL (0.00-0.02) Total Bilirubin 0.5 mg/dl (0.2-1) Direct Bilirubin 0.1 mg/dl (0-0.2) Aspartate Amino Transf (AST/SGOT) 24 U/L (15-37) Alanine Aminotransferase (ALT/SGPT) 33 U/L (12-78) Alkaline Phosphatase 74 U/L (45-117) Total Protein 7.6 gm/dl (6.4-8.2) Albumin 3.8 gm/dl (3.4-5.0) Lipase 140 U/L (73-393) Bedside Troponin I < 0.030 ng/ml (0-0.045) Prothrombin Time 11.0 SECONDS (9.0-12.0) Prothromb Time International Ratio 1.0 (0.9-1.1) RDW Standard Deviation 47.6 fL (36.4-46.3) RDW Coefficient of Variation 14.7 % (11.5-14.5) Anion Gap 4.0 mmol/L (3-11) Est Creatinine Clear Calc Drug Dose 85.6 ml/min Estimated GFR () 87.5 Estimated GFR (Non- 75.5 BUN/Creatinine Ratio 12.6 (10-20) Calcium Level 8.5 mg/dl (8.5-10.1) Triglycerides Level 123 mg/dl (0-150) Cholesterol Level 154 mg/dl (0-200) HDL Cholesterol 41 mg/dl LDL Cholesterol, Calculated 88 mg/dl VLDL Cholesterol, Calculated 25 mg/dl Cholesterol/HDL Ratio 3.8 Thyroid Stimulating Hormone (TSH) 7.870 uIu/ml (0.300-4.500) Free Thyroxine 0.94 ng/dl (0.80-1.60) Hepatitis C Antibody Screen NEG (NEG) Test 02/06/17 10:24 Total Creatine Kinase 240 U/L (26-192) Creatine Kinase MB 0.9 ng/ml (0.5-3.6) Creatine Kinase MB Ratio 0.4 (0-3.0) Troponin I < 0.015 ng/ml (0-0.045) Assessment & Plan 56 yo F with no medical problems who is low risk for CAD presents with elevated blood pressure associated with chest pain with exertion, resolved with rest. 1. Hypertensive urgency-Serial cardiac enzymes were negative. Appreciate Cardiology seeing her. TTE performed-some evidence of diastolic dysfunction and LVH-discussed with patient. Had plans to leave but then BP went up to >190 systolic. Lisinopril was increased to 40mg daily. Will cont to monitor her one more day to ensure stability. Plan for stress test as outpatient. 2. Chest pain with exertion-ACS workup negative overnight, requires outpatient stress test for risk stratification. 3. Hypothyroidism-mildly elevated TSH and asymptomatic at this time. Defer to outpatient PCP for recheck/workup/start treatment as necessary 4. Obesity 5. Cough-residual from URI 4 weeks ago. Albuterol neb PRN with T3 PRN for symptom relief. 6, H/o noncompliance with antihypertensives in the past. DVT-Lovenox Full Code Dispo-to home in am Azeb Christina DO [facility] Hospitalist Current Inpatient Medications: Current Inpatient Medications Medications (Trade) Dose Ordered Sig/Kenney Route Start Time Stop Time Status Last Admin Dose Admin Enoxaparin Sodium (Lovenox Inj) 40 mg Q24H SC 02/05/17 22:00 03/07/17 21:59 02/06/17 21:36 40 MG Acetaminophen (Tylenol Tab) 650 mg Q4H PRN PO 02/05/17 20:30 03/07/17 20:29 Al Hydrox/Mg Hydrox/Simethicone (Maalox Max Susp) 15 ml Q4H PRN PO 02/05/17 20:30 03/07/17 20:29 Ondansetron HCl (Zofran Inj) 4 mg Q6H PRN IV 02/05/17 20:30 03/07/17 20:29 Aspirin (Ecotrin Tab) 81 mg QAM PO 02/06/17 09:00 03/08/17 08:59 02/07/17 08:14 81 MG Polyethylene (Miralax Powder Packet) 17 gm DAILY PRN PO 02/05/17 20:30 03/07/17 20:29 Miscellaneous (Iv Fluids Completed) 1 ea PRN PRN N/A 02/05/17 20:45 02/05/18 20:44 Lisinopril (Zestril Tab) 20 mg QAM PO 02/07/17 08:00 03/08/17 08:59 02/07/17 08:14 20 MG Albuterol Sulfate (Ventolin 0.083% 2.5MG/3ML Neb) 2.5 mg Q6R PRN INH 02/06/17 14:30 03/08/17 14:29 02/07/17 07:37 2.5 MG Codeine Phosphate/ Guaifenesin (Robitussin-AC Sugar Free Syrup) 10 ml Q6H PRN PO 02/06/17 14:30 03/08/17 14:29
[2017-02-07] MEDS: ENOXAPARIN 40 MG/0.4 ML SYR SC SCH (22:14)
[2017-02-08] VITALS (10 sets, daily range): BP systolic 146–191; BP diastolic 81–117; PULSE 76–116; TEMP 36.7–36.9; O2SAT 96–99
[2017-02-08] MEDS ORDERED: AMLODIPINE BESYLATE 5 MG TAB PO STA (00:07)
[2017-02-08] MEDS: AMLODIPINE BESYLATE 5 MG TAB PO SCH (08:04)
[2017-02-08] MEDS: ASPIRIN 81 MG ECTAB PO SCH (08:04)
--- NOTE | 2017-02-08 08:34 | Discharge Instructions ---
Discharge Instructions Date of Service Feb 08, 2017. Admission Reason for Admission: Chest Pain, Hypertensive Urgency Discharge Discharge Diagnosis / Problem: Hypertensive Urgency, Chest pain Discharge Goals Goal(s): Prevent Disease Progression Activity Recommendations Activity Limitations: per Instructions/Follow-up section . Instructions / Follow-Up Instructions / Follow-Up Please take new medication as instructed daily. Please obtain repeat bloodwork, non-fasting, in 2 weeks. Results should be sent to your primary care physician (PCP). You will also need close follow-up for abnormal thyroid testing in the hospital. Your TSH was slightly elevated and will need to be repeated/ addressed by PCP as outpatient. Please try to restrict salt/sodium intake to <3000mg daily. Reading nutrition labels will help you add this up through the day. Please follow-up with your new PCP as scheduled next week for blood pressure check on the new medication. Please ensure you obtain a stress test at the earliest convenience. This may be ordered through your PCP office. It was a pleasure taking care of you! Call if you have any questions or problems. You can reach a [facility] hospitalist on duty at [facility] 24 hours a day by calling [phone]. Take care of yourself. Azeb Christina DO [facility] Hospitalist Current Hospital Diet Patient's current hospital diet: AHA Diet (Heart Healthy) Discharge Diet Recommended Diet: AHA Diet (Heart Healthy) Procedures Procedures Performed: TTE Pending Studies Studies pending at discharge: no Laboratory Results Lipid Panel Test 02/06/17 02:32 Range/Units Triglycerides Level 123 0-150 mg/dl Cholesterol Level 154 0-200 mg/dl HDL Cholesterol 41 mg/dl Cholesterol/HDL Ratio 3.8 LDL Cholesterol, Calculated 88 mg/dl Medical Emergencies . Who to Call and When: Medical Emergencies: If at any time you feel your situation is an emergency, please call 911 immediately. . Non-Emergent Contact Non-Emergency issues call your: Primary Care Provider . . "Provider Documentation" section prepared by Azeb Christina. . VTE Core Measure Inpt VTE Proph given/why not?: Enoxaparin (Lovenox)SQ
[2017-02-08 08:38] LABS: HEMATOCRIT 41.8 % (37-47); MEAN CELL VOLUME 88.9 fL (80-100); MEAN CORPUSCULAR HEMOGLOBIN 27.2 pg (25-34); MEAN CORPUSCULAR HGB CONC 30.6 g/dl (32-36); MEAN PLATELET VOLUME 10.3 fL (7.4-10.4); PLATELET COUNT 249 K/uL (130-400); WHITE BLOOD COUNT 7.17 K/uL (4.8-10.8)
[2017-02-08] MEDS: LISINOPRIL 40 MG TAB PO SCH (08:56)
[2017-02-08] MEDS: ALBUTEROL 0.083% NEBU SOLN 3 ML VIAL INH PRN (09:03)
[2017-02-08 09:18] LABS: CREATININE 0.93 mg/dl (0.60-1.20)
[2017-02-08] MEDS ORDERED: LSN40 PO (09:42)
[2017-02-08] MEDS ORDERED: AMLO5TAB2 PO (09:42)
[2017-02-08] MEDS ORDERED: AMLODIPINE BESYLATE 5 MG TAB PO ONE (11:15)
[2017-02-08] MEDS ORDERED: LORAZEPAM 0.5 MG TAB PO STA (14:04)
[2017-02-08] MEDS ORDERED: HYDROCHLOROTHIAZIDE 25 MG TAB PO ONE (14:11)
[2017-02-08] MEDS ORDERED: LORAZEPAM 0.5 MG TAB PO PRN (14:15)
--- NOTE | 2017-02-08 18:10 | Progress Note ---
Medicine Progress Note Date & Time of Visit: Feb 08, 2017 at 18:05. Subjective ambulatory asymptomatic spike in systolic BP overnight to 190-given Norvasc with good result was again going to discharge her and repeat BP check was again 190 discussed case with Cards and will add HCTZ and monitor overnight. Objective 02/08/17 08:05 02/06/17 02:32 02/08/17 08:05 Test 02/05/17 17:40 02/05/17 17:50 02/05/17 21:26 02/06/17 02:32 Immature Granulocyte % (Auto) 0.1 % White Blood Count 7.30 K/uL (4.8-10.8) Red Blood Count 4.69 M/uL (4.2-5.4) Hemoglobin 13.4 g/dL (12.0-16.0) Hematocrit 40.8 % (37-47) Mean Corpuscular Volume 87.0 fL (80-100) Mean Corpuscular Hemoglobin 28.6 pg (25-34) Mean Corpuscular Hemoglobin Concent 32.8 g/dl (32-36) Platelet Count 222 K/uL (130-400) Mean Platelet Volume 9.7 fL (7.4-10.4) Neutrophils (%) (Auto) 55.3 % Lymphocytes (%) (Auto) 35.5 % Monocytes (%) (Auto) 6.4 % Eosinophils (%) (Auto) 2.6 % Basophils (%) (Auto) 0.1 % Neutrophils # (Auto) 4.03 K/uL (1.4-6.5) Lymphocytes # (Auto) 2.59 K/uL (1.2-3.4) Monocytes # (Auto) 0.47 K/uL (0.11-0.59) Eosinophils # (Auto) 0.19 K/uL (0-0.5) Basophils # (Auto) 0.01 K/uL (0-0.2) Immature Granulocyte # (Auto) 0.01 K/uL (0.00-0.02) Total Bilirubin 0.5 mg/dl (0.2-1) Direct Bilirubin 0.1 mg/dl (0-0.2) Aspartate Amino Transf (AST/SGOT) 24 U/L (15-37) Alanine Aminotransferase (ALT/SGPT) 33 U/L (12-78) Alkaline Phosphatase 74 U/L (45-117) Total Protein 7.6 gm/dl (6.4-8.2) Albumin 3.8 gm/dl (3.4-5.0) Lipase 140 U/L (73-393) Bedside Troponin I < 0.030 ng/ml (0-0.045) Prothrombin Time 11.0 SECONDS (9.0-12.0) Prothromb Time International Ratio 1.0 (0.9-1.1) Anion Gap 4.0 mmol/L (3-11) BUN/Creatinine Ratio 12.6 (10-20) Calcium Level 8.5 mg/dl (8.5-10.1) Triglycerides Level 123 mg/dl (0-150) Cholesterol Level 154 mg/dl (0-200) HDL Cholesterol 41 mg/dl LDL Cholesterol, Calculated 88 mg/dl VLDL Cholesterol, Calculated 25 mg/dl Cholesterol/HDL Ratio 3.8 Thyroid Stimulating Hormone (TSH) 7.870 uIu/ml (0.300-4.500) Free Thyroxine 0.94 ng/dl (0.80-1.60) Hepatitis C Antibody Screen NEG (NEG) Test 02/06/17 10:24 02/08/17 08:05 Total Creatine Kinase 240 U/L (26-192) Creatine Kinase MB 0.9 ng/ml (0.5-3.6) Creatine Kinase MB Ratio 0.4 (0-3.0) Troponin I < 0.015 ng/ml (0-0.045) Red Blood Count 4.70 M/uL (4.2-5.4) Mean Corpuscular Volume 88.9 fL (80-100) Mean Corpuscular Hemoglobin 27.2 pg (25-34) Mean Corpuscular Hemoglobin Concent 30.6 g/dl (32-36) RDW Standard Deviation 48.9 fL (36.4-46.3) RDW Coefficient of Variation 15.2 % (11.5-14.5) Mean Platelet Volume 10.3 fL (7.4-10.4) Est Creatinine Clear Calc Drug Dose 79.2 ml/min Estimated GFR () 79.6 Estimated GFR (Non- 68.7 Last 8 Hrs Date Time Temp Pulse Resp B/P (MAP) Pulse Ox O2 Delivery O2 Flow Rate FiO2 02/08/17 16:00 Room Air 9/9/17 14:47 36.9 95 18 148/81 (103) 96 Room Air 02/08/17 13:20 36.8 116 22 186/102 (130) 97 Room Air 184/117 (139) 02/08/17 10:58 191/99 (129) Physical Exam: GEN: obese, in no acute distress, alert and appropriate HEENT: NC/AT, normal sclerae, MMM CARDIO: reg rate, S1/2 heard without m/g/r, no JVD, no edema LUNGS: CTA bilaterally, no crackles, rales or wheezes, good diaphragmatic excursion ABD: soft, non-tender, non-distended, no rebound or guarding, +BS EXTREMITY: RP and DP palpable 2+ bilat, no LE swelling or edema, extremities are warm and well-perfused NEURO: CN 2-12 grossly intact MUSC: 5/5 strength throughout, no focal deficits SKIN: warm and dry Laboratory Results: 02/08/17 08:05 02/06/17 02:32 02/08/17 08:05 Test 02/05/17 17:40 02/05/17 17:50 02/05/17 21:26 02/06/17 02:32 Immature Granulocyte % (Auto) 0.1 % White Blood Count 7.30 K/uL (4.8-10.8) Red Blood Count 4.69 M/uL (4.2-5.4) Hemoglobin 13.4 g/dL (12.0-16.0) Hematocrit 40.8 % (37-47) Mean Corpuscular Volume 87.0 fL (80-100) Mean Corpuscular Hemoglobin 28.6 pg (25-34) Mean Corpuscular Hemoglobin Concent 32.8 g/dl (32-36) Platelet Count 222 K/uL (130-400) Mean Platelet Volume 9.7 fL (7.4-10.4) Neutrophils (%) (Auto) 55.3 % Lymphocytes (%) (Auto) 35.5 % Monocytes (%) (Auto) 6.4 % Eosinophils (%) (Auto) 2.6 % Basophils (%) (Auto) 0.1 % Neutrophils # (Auto) 4.03 K/uL (1.4-6.5) Lymphocytes # (Auto) 2.59 K/uL (1.2-3.4) Monocytes # (Auto) 0.47 K/uL (0.11-0.59) Eosinophils # (Auto) 0.19 K/uL (0-0.5) Basophils # (Auto) 0.01 K/uL (0-0.2) Immature Granulocyte # (Auto) 0.01 K/uL (0.00-0.02) Total Bilirubin 0.5 mg/dl (0.2-1) Direct Bilirubin 0.1 mg/dl (0-0.2) Aspartate Amino Transf (AST/SGOT) 24 U/L (15-37) Alanine Aminotransferase (ALT/SGPT) 33 U/L (12-78) Alkaline Phosphatase 74 U/L (45-117) Total Protein 7.6 gm/dl (6.4-8.2) Albumin 3.8 gm/dl (3.4-5.0) Lipase 140 U/L (73-393) Bedside Troponin I < 0.030 ng/ml (0-0.045) Prothrombin Time 11.0 SECONDS (9.0-12.0) Prothromb Time International Ratio 1.0 (0.9-1.1) Anion Gap 4.0 mmol/L (3-11) BUN/Creatinine Ratio 12.6 (10-20) Calcium Level 8.5 mg/dl (8.5-10.1) Triglycerides Level 123 mg/dl (0-150) Cholesterol Level 154 mg/dl (0-200) HDL Cholesterol 41 mg/dl LDL Cholesterol, Calculated 88 mg/dl VLDL Cholesterol, Calculated 25 mg/dl Cholesterol/HDL Ratio 3.8 Thyroid Stimulating Hormone (TSH) 7.870 uIu/ml (0.300-4.500) Free Thyroxine 0.94 ng/dl (0.80-1.60) Hepatitis C Antibody Screen NEG (NEG) Test 02/06/17 10:24 02/08/17 08:05 Total Creatine Kinase 240 U/L (26-192) Creatine Kinase MB 0.9 ng/ml (0.5-3.6) Creatine Kinase MB Ratio 0.4 (0-3.0) Troponin I < 0.015 ng/ml (0-0.045) Red Blood Count 4.70 M/uL (4.2-5.4) Mean Corpuscular Volume 88.9 fL (80-100) Mean Corpuscular Hemoglobin 27.2 pg (25-34) Mean Corpuscular Hemoglobin Concent 30.6 g/dl (32-36) RDW Standard Deviation 48.9 fL (36.4-46.3) RDW Coefficient of Variation 15.2 % (11.5-14.5) Mean Platelet Volume 10.3 fL (7.4-10.4) Est Creatinine Clear Calc Drug Dose 79.2 ml/min Estimated GFR () 79.6 Estimated GFR (Non- 68.7 Last 24 Hours Test 02/08/17 08:05 White Blood Count 7.17 K/uL Red Blood Count 4.70 M/uL Hemoglobin 12.8 g/dL Hematocrit 41.8 % Mean Corpuscular Volume 88.9 fL Mean Corpuscular Hemoglobin 27.2 pg Mean Corpuscular Hemoglobin Concent 30.6 g/dl RDW Standard Deviation 48.9 fL RDW Coefficient of Variation 15.2 % Platelet Count 249 K/uL Mean Platelet Volume 10.3 fL Creatinine 0.93 mg/dl Est Creatinine Clear Calc Drug Dose 79.2 ml/min Estimated GFR () 79.6 Estimated GFR (Non- 68.7 Assessment & Plan 56 yo F with no medical problems who is low risk for CAD presents with elevated blood pressure associated with chest pain with exertion, resolved with rest. She has been hemodynamically stable, however, has had persistent hypertension around 190 systolic intermittently. 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 Poss anxiety component, also. 1. Hypertensive -continues to be uncontrolled on lisinopril 40, Norvasc 10. Discussed with Cards and will add HCTZ 12.5mg at this time. Will keep her inpatient until she remains within goal for at least 24 hours. Repeat check was improved to the mid-140s systolic. Workup since admission includes negative serial cardiac enzymes. TTE performed-some evidence of diastolic dysfunction and LVH-discussed with patient. 2. Chest pain with exertion-ACS workup negative overnight, requires outpatient stress test for risk stratification. Remains asymptomatic at this time. 3. Hypothyroidism-mildly elevated TSH and asymptomatic at this time. Defer to outpatient PCP for recheck/workup/start treatment as necessary 4. Obesity 5. Cough-residual from URI 4 weeks ago. Albuterol neb PRN with T3 PRN for symptom relief. 6, H/o noncompliance with antihypertensives in the past. DVT-Lovenox Full Code Dispo-to [facility] in am [facility] Current Inpatient Medications: Current Inpatient Medications Medications (Trade) Dose Ordered Sig/[place] Route Start Time Stop Time Status Last Admin Dose Admin Enoxaparin Sodium (Lovenox Inj) 40 mg Q24H SC 02/05/17 22:00 03/07/17 21:59 02/07/17 22:14 40 MG Acetaminophen (Tylenol Tab) 650 mg Q4H PRN PO 02/05/17 20:30 03/07/17 20:29 Al Hydrox/Mg Hydrox/Simethicone (Maalox Max Susp) 15 ml Q4H PRN PO 02/05/17 20:30 03/07/17 20:29 Ondansetron HCl (Zofran Inj) 4 mg Q6H PRN IV 02/05/17 20:30 03/07/17 20:29 Aspirin (Ecotrin Tab) 81 mg QAM PO 02/06/17 09:00 03/08/17 08:59 02/08/17 08:04 81 MG Polyethylene (Miralax Powder Packet) 17 gm DAILY PRN PO 02/05/17 20:30 03/07/17 20:29 Miscellaneous (Iv Fluids Completed) 1 ea PRN PRN N/A 02/05/17 20:45 02/05/18 20:44 Albuterol Sulfate (Ventolin 0.083% 2.5MG/3ML Neb) 2.5 mg Q6R PRN INH 02/06/17 14:30 03/08/17 14:29 02/08/17 09:03 2.5 MG Codeine Phosphate/ Guaifenesin (Robitussin-AC Sugar Free Syrup) 10 ml Q6H PRN PO 02/06/17 14:30 03/08/17 14:29 Lisinopril (Zestril Tab) 40 mg QAM PO 02/08/17 08:00 03/10/17 07:59 02/08/17 08:56 40 MG Amlodipine Besylate (Norvasc Tab) 5 mg QAM PO 02/08/17 08:00 03/10/17 07:59 02/08/17 08:04 5 MG Hydrochlorothiazide (Hydrochlorothiazide Tab) 12.5 mg DAILY PO 02/09/17 08:00 03/11/17 07:59 Lorazepam (Ativan Tab) 0.5 mg TID PRN PO 02/08/17 14:15 03/10/17 14:14
[2017-02-08] MEDS: ENOXAPARIN 40 MG/0.4 ML SYR SC SCH (22:00)
[2017-02-09 00:26] VITALS: BP 160/88; PULSE 74; TEMP 36.6; O2SAT 96
[2017-02-09 07:08] VITALS: BP_SYST 100; BP_SYST 115; BP_SYST 123; BP_SYST 137; BP_DIAS 56; BP_DIAS 66; BP_DIAS 72; PULSE 76; PULSE 79; TEMP 36.5; TEMP 36.7; O2SAT 97; O2SAT 98
[2017-02-09] MEDS ORDERED: HYDROCHLOROTHIAZIDE 25 MG TAB PO SCH (08:00)
[2017-02-09] MEDS: LISINOPRIL 40 MG TAB PO SCH (08:33)
[2017-02-09] MEDS: AMLODIPINE BESYLATE 5 MG TAB PO SCH (08:34)
[2017-02-09] MEDS: ASPIRIN 81 MG ECTAB PO SCH (08:34)
[2017-02-09 12:10] VITALS: BP 124/79; PULSE 77
[2017-02-09] MEDS ORDERED: AMLO10TA2 PO (12:10)
[2017-02-09] MEDS ORDERED: HYDR12.56 PO (12:10)
[2017-02-09 14:31] VITALS: BP_SYST 138; BP_SYST 146; BP_SYST 155; BP_DIAS 81; BP_DIAS 84; BP_DIAS 86
[2017-02-09] MEDS ORDERED: LORA-741 PO (15:07)
--- NOTE | 2017-02-11 21:52 | Discharge Summary ---
Discharge Summary Date of Service Feb 11, 2017. Discharge Summary Admission Date: Feb 06, 2017 at 23:57 Discharge Date: Feb 08, 2017 Discharge Disposition: Home Principal Diagnosis: Hypertensive urgency Chest pain with exertion Subacute clinical hypothyroidism Obesity Cough 2/2 URI h/o noncompliance Procedures: None. Vaccinations: None. Consultations: Cardiology Pending Studies/Follow-Up: see instructions below. Medication Reconciliation New Medications: Amlodipine Besylate (Norvasc) 10 Mg Tab 1 TAB PO DAILY for 30 Days, #30 TAB 3 Refills Hydrochlorothiazide (Hctz) 12.5 Mg Cap 1 CAP PO DAILY for 30 Days, #30 CAP 3 Refills Lisinopril (Lisinopril) 40 Mg Tab 40 MG PO DAILY for 30 Days, #30 TAB 1 Refill Lorazepam (Ativan) 0.5 Mg Tab 0.5 MG PO BID PRN for Anxiety/Agitation for 5 Days, #10 TAB Only for severe anxiety. Do not take with alcohol. Admission Information HPI (per Admitting provider): Patient is a 56yo female who presents to the hospital after being seen at urgent care today and being found to have severely elevated BP. She was referred to the hospital for furhter evaluation. She states she went to urgent care today because of an incident yesterday where she had blurry vision that last a few minutes and she was worried she would go blind. She states she was seen by her PCP over 6 months ago and was started on BP meds but she did not take them after the first 6 weeks and has not followed up. She states she didn' t take the meds because she kept forgetting. Patient states she feels fine right now and denies any complaints except when she exerts herself, then with exertion she feels chest pain and SOB. She denies any diaphoresis, palpitations , N/V, MENDOZA, dizziness, lightheadedness or visual changes today. She states she thought she had bronchitis from allergies/hay exposure after [place] fair but has not had wheezing for several weeks now. She has occasional non productive cough. She denies any nasal symptoms. Physical Exam (per Admitting): General Appearance: WD/WN, no apparent distress Head: normocephalic, atraumatic Eyes: PERRL, EOMI ENT: hearing grossly normal Neck: supple, no JVD, no carotid bruits, trachea midline Respiratory/Chest: lungs clear, normal breath sounds, no respiratory distress, + decreased breath sounds Cardiovascular: regular rate, rhythm, no edema, no gallop, no JVD, no murmur Abdomen/GI: normal bowel sounds, non tender, soft, no organomegaly Back: normal inspection, no CVA tenderness Extremities/Musculoskelatal: no calf tenderness, normal capillary refill Neurologic/Psych: no motor/sensory deficits, alert, normal mood/affect, oriented x 3 Skin: normal color, warm/dry, no rash Hospital Course 56 yo F with no medical problems who is low risk for CAD presents with elevated blood pressure associated with chest pain with exertion, resolved with rest. She has been hemodynamically stable, however, has had persistent hypertension around 190 systolic intermittently. 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 Poss anxiety component, also. 1. Hypertensive -continues to be uncontrolled on lisinopril 40, Norvasc 10. Discussed with Cards and will add HCTZ 12.5mg at this time. Will keep her inpatient until she remains within goal for at least 24 hours. Repeat check was improved to the mid-140s systolic. Workup since admission includes negative serial cardiac enzymes. TTE performed-some evidence of diastolic dysfunction and LVH-discussed with patient. 2. Chest pain with exertion-ACS workup negative overnight, requires outpatient stress test for risk stratification. Remains asymptomatic at this time. 3. Hypothyroidism-mildly elevated TSH and asymptomatic at this time. Defer to outpatient PCP for recheck/workup/start treatment as necessary 4. Obesity 5. Cough-residual from URI 4 weeks ago. Albuterol neb PRN with T3 PRN for symptom relief. 6, H/o noncompliance with antihypertensives in the past. On day of discharge she was afebrile and hemodynamically stable. She was ambulating and mentating at baseline. She was eventually placed on three antihypertensives, and counseled about anxiety and how best to control it. Physical exam was unremarkable on day of discharge and she was sent home in stable condition with close PCP follow-up. Total time spent on discharge = 60 minutes This includes examination of the patient, discharge planning, medication reconciliation, and communication with other providers. Discharge Instructions [address] [place] [address] Discharge Medical Patient Name: Radha Easton Unit Number: [id number] Date of : 1960 Patient Status: Discharged Inpatient Attending Doctor: Azeb Christina DO DI: Medical v4 Discharge Instructions Date of Service Feb 08, 2017. Admission Reason for Admission: Chest Pain, Hypertensive Urgency Discharge Discharge Diagnosis / Problem: Hypertensive Urgency, Chest pain Discharge Goals Goal(s): Prevent Disease Progression Activity Recommendations Activity Limitations: per Instructions/Follow-up section . Instructions / Follow-Up Instructions / Follow-Up Please take new medication as instructed daily. Please obtain repeat bloodwork, non-fasting, in 2 weeks. Results should be sent to your primary care physician (PCP). You will also need close follow-up for abnormal thyroid testing in the hospital. Your TSH was slightly elevated and will need to be repeated/ addressed by PCP as outpatient. Please try to restrict salt/sodium intake to <3000mg daily. Reading nutrition labels will help you add this up through the day. Please follow-up with your new PCP as scheduled next week for blood pressure check on the new medication. Please ensure you obtain a stress test at the earliest convenience. This may be ordered through your PCP office. It was a pleasure taking care of you! Call if you have any questions or problems. You can reach a [facility] hospitalist on duty at [facility] 24 hours a day by calling [phone]. Take care of yourself. Azeb Christina DO [facility] Hospitalist Current Hospital Diet Patient's current hospital diet: AHA Diet (Heart Healthy) Discharge Diet Recommended Diet: AHA Diet (Heart Healthy) Procedures Procedures Performed: TTE Pending Studies Studies pending at discharge: no Laboratory Results Lipid Panel Test 02/06/17 02:32 Range/Units Triglycerides Level 123 0-150 mg/dl Cholesterol Level 154 0-200 mg/dl HDL Cholesterol 41 mg/dl Cholesterol/HDL Ratio 3.8 LDL Cholesterol, Calculated 88 mg/dl Medical Emergencies . Who to Call and When: Medical Emergencies: If at any time you feel your situation is an emergency, please call 911 immediately. . Non-Emergent Contact Non-Emergency issues call your: Primary Care Provider . . "Provider Documentation" section prepared by Azeb Christina. . VTE Core Measure Inpt VTE Proph given/why not?: Enoxaparin (Lovenox)SQ Additional Copies To Lalita, Bonilla L.,M.D.
== END 2017-02-09 18:10 | disposition home or self-care (01) | DRG 305 ==
LOC: C.EDB 17:02 → C.2T 20:26 → ENRESERV 20:39 → C.MS4W 02-06 15:42 → OBSVTOIN 02-06 23:57
PROVIDERS: ADMIT Internal Medicine; ATTEND Hospitalist
DX: I16.0 Hypertensive urgency (principal); Z68.42 Body mass index [BMI] 45.0-49.9, adult; R07.89 Other chest pain; E03.9 Hypothyroidism, unspecified; J06.9 Acute upper respiratory infection, unspecified; I10 Essential (primary) hypertension; E66.9 Obesity, unspecified; Z51.81 Encounter for therapeutic drug level monitoring; Z91.19 Patient's noncompliance with other medical treatment and regimen; Z82.49 Family history of ischemic heart disease and other diseases of the circulatory system; Z83.3 Family history of diabetes mellitus

== ENCOUNTER → 2017-08-13 | Outpatient (CLI) | payer BC, OTHER ==
[~2017-08-13] MED LIST: AMLO10TA2 PO; HYDR12.56 PO; LSN40 PO
== END | disposition home or self-care (01) ==
LOC: C.RDSM 08:32
PROVIDERS: ATTEND Physician Assistant
DX: M25.561 Pain in right knee (principal)

== ENCOUNTER 2019-03-14 12:51 | Inpatient (IN) ==
[~2019-03-14 12:51] MED LIST changes: -AMLO10TA2 PO; +CEFAZOLIN 3000MG 65 ML IV SCH; -HYDR12.56 PO; +LACTATED RINGER'S 1,000 ML IV SCH; -LSN40 PO
[2019-03-14] MEDS ORDERED: SODIUM CHLORIDE 0.9% 250 ML IV PRN (13:09)
[2019-03-14] MEDS ORDERED: ONDANSETRON INJ 2 MG/ML 2 ML VIAL IV STA (13:09)
[2019-03-14] MEDS ORDERED: ACETAMINOPHEN 1,000 MG/100 ML VIAL IV STA (13:11)
[2019-03-14] MEDS ORDERED: SODIUM CHLORIDE 0.9% 1000ML 1,000 ML IV SCH ×2 (13:15→20:45)
[2019-03-14 13:39] LABS: Basophils # (auto) 0.01 K/uL (0-0.2); Basophils % (auto) 0.1 %; Eosinophils # (auto) 0.23 K/uL (0-0.5); Eosinophils % (auto) 2.3 %; Hematocrit (blood only) 38.6 % (37-47); Hemoglobin 12.6 g/dL (12.0-16.0); Immature Granulocytes # (auto) 0.01 K/uL (0.00-0.02); Immature Granulocytes % (auto) 0.1 %; Lymphocytes # (auto) 3.76 K/uL (1.2-3.4); Lymphocytes % (auto) 37.2 %; Mean Corpuscular Hgb Conc 32.6 g/dL (32-36); Mean Corpuscular Volume 88.9 fL (80-100); Mean Platelet Volume 11.1 fL (7.4-10.4); Monocytes # (auto) 0.72 K/uL (0.11-0.59); Monocytes % (auto) 7.1 %; Neutrophils # (auto) 5.38 K/uL (1.4-6.5); Neutrophils % (auto) 53.2 %; Platelet Count 227 K/uL (130-400); RDW Coefficient of Variation 13.8 % (11.5-14.5); RDW Standard Deviation 45.1 fL (36.4-46.3); Red Blood Count 4.34 M/uL (4.2-5.4); White Blood Count 10.11 K/uL (4.8-10.8)
[2019-03-14 13:43] LABS: iSTAT Hemoglobin 12.6 g/dl (12.0-16.0); iSTAT Ionized Calcium 1.17 mmol/l (1.12-1.32); iSTAT Potassium 2.9 mEq/L (3.3-5.0)
--- NOTE | 2019-03-14 13:50 | Emergency Department Note ---
Entered by Nely Schneider acting as a scribe for Edgar Rodriguez MD History of Present Illness General Chief complaint: Urinary Symptoms Stated complaint: BLOOD CLOTS IN URINE Time Seen by Provider: 03/14/19 13:09 Source: patient and family () Limitations: no limitations History of Present Illness Onset (ago): day(s) 1 Location: genitals (vaginal bleeding) Pain Consistency: + other (persistent) Quality: + other (vaginal bleeding, worsening ) Associated symptoms: + syncope and + other (lightheaded, dizzy, cramping in abdomen) The patient is a 58 year old female who presents to the Emergency Room with complaints of persistent vaginal bleeding that began yesterday. She notes that the bleeding worsened today. The patient notes that she had a uterine polyp removed 9 days ago. She complains of feeling lightheaded and dizzy. The patient's , at bedside, notes that she had a syncopal episode while she was sitting in the ER waiting area. She complains of cramping in her abdomen that began today. 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 The patient reports that Dr. Johnson recommended she present to ER if her symptoms worsen. Home Medications Home Medications Medication Instructions Recorded Confirmed Type losartan-hydrochlorothiazide 1 tab PO QAM 02/15/19 03/14/19 History ibuprofen [Advil] 600 mg PO Q6H 03/14/19 03/14/19 History Allergies Allergy/AdvReac Type Severity Reaction Status Date / Time neomycin Allergy Unknown RASH Verified 03/14/19 14:18 tobramycin Allergy Unknown Swelling Verified 03/14/19 14:18 of the Eye, REDNESS, ITCHINESS AND LOSS OF VISION lisinopril AdvReac Unknown Cough Verified 03/14/19 14:18 Past Med/Surg History Medical History Radius fracture Bartholin cyst (Acute) hx and removal of bartholin cyst High blood pressure History of migraine headaches Morbid obesity Snores Witnessed apneic events. Patient states she was not able to finish testing for sleep apnea due to claustrophobia with the wires during testing. She states with the limited testing they did, they suspected sleep apnea. She states since then she has lost weight and had improvement in symptoms. Surgical History Status post hysteroscopic polypectomy History of arthroscopy of left knee History of eye surgery RIGHT EYE History of lumpectomy of left breast + seed wart removal from head done at same time History of tubal ligation Status post trigger finger release Family History Father Family history of diabetes mellitus (DM) Social History Preferred Language: [place] Communication Ability: Effective Creative Art Therapist Required: No Beliefs That Will Affect Care: None Current Living Situation: Spouse Feels Safe at Home: Yes Smoking Status: Never smoker Hx Alcohol Use: No Hx Substance Use: No Review of Systems See HPI for pertinent positives & negatives. and A total of 10 systems reviewed and were otherwise negative Physical Exam Vital Signs Vital Signs - 24 hr 03/14/19 13:09 03/14/19 13:13 03/14/19 13:14 Temperature 36.4 C L Temperature Source Oral Sepsis Recent Fever Within 48 Hours No Sepsis Action Taken by Nursing No Action Required Pulse Rate 63 66 67 Pulse Rate from SpO2 Sensor 63 67 Respiratory Rate 22 23 20 Blood Pressure 161/64 H 161/64 H Blood Pressure Mean 96 96 Pulse Oximetry 99 97 99 Oxygen Delivery Method Room Air Room Air Room Air 03/14/19 13:17 03/14/19 13:30 03/14/19 14:03 Temperature Temperature Source Sepsis Recent Fever Within 48 Hours Sepsis Action Taken by Nursing Pulse Rate 56 L 83 Pulse Rate from SpO2 Sensor 56 L Respiratory Rate 19 33 H Blood Pressure Blood Pressure Mean Pulse Oximetry 100 99 Oxygen Delivery Method Room Air Room Air 03/14/19 14:30 03/14/19 15:45 Temperature Temperature Source Sepsis Recent Fever Within 48 Hours Sepsis Action Taken by Nursing Pulse Rate 72 83 Pulse Rate from SpO2 Sensor 70 Respiratory Rate 30 H 18 Blood Pressure 194/87 H 178/83 H Blood Pressure Mean 122 Pulse Oximetry 96 99 Oxygen Delivery Method Room Air Room Air GENERAL: Patient is in moderate distress. HEENT: No acute trauma, normocephalic atraumatic, mucous membranes moist, no nasal congestion, no scleral icterus. NECK: No stridor, no adenopathy, no meningismus, trachea is midline. LUNGS: Clear to auscultation bilaterally, no wheeze, no rhonchi, breath sounds equal. HEART: Without murmurs gallops or rubs, regular rate and rhythm. ABDOMEN: Soft, bowel sounds positive, no hernias, no peritonitis. Tender over the lower mid pelvis. VAGINAL: Heavy clots noted in the vaginal area. Blood running down her legs. Underwear soaked in blood. EXTREMITIES: No cyanosis or edema, full range of motion of all the joints without pain or difficulty, no signs for acute trauma. NEUROLOGIC: Oriented x 3, no acute motor or sensory deficits, no focal weakness. SKIN: Pale, cool to touch, no jaundice. Course 1304: The patient was evaluated in room C09. A complete history and physical exam was performed. 1310: I spoke with Dr. Johnson, [facility]-GL[facility] JOINTER OPERATOR, about the patient's case. She will evaluate the patient. 1333: I reevaluated the patient, and her color was improved. Her I-STAT hemoglobin is not low enough that she needs to be emergently transfused. Dr. Johnson is in the room with the patient, and she will likely take the patient to the operating room. Administered Medications Discontinued Medications Acetaminophen (Ofirmev) 1,000 mg in 100 mls @ 400 mls/hr IV NOW STA Stop: 03/14/19 13:25 Last Infusion: 03/14/19 13:50 Dose: 0 mls/hr Documented by: [id number] Admin: 03/14/19 13:35 Dose: 400 mls/hr Documented by: [id number] Sodium Chloride (Nss 1000ml) 1,000 mls @ 999 mls/hr IV .Q1H1M DINESH Stop: 03/14/19 14:15 Last Infusion: 03/14/19 14:24 Dose: 0 mls/hr Documented by: [id number] Admin: 03/14/19 13:28 Dose: 999 mls/hr Documented by: [id number] Cefazolin Sodium (Ancef 3000mg) 72.5 mls @ 130 mls/hr IV ONCE ONE Stop: 03/14/19 17:40 Last Admin: 03/14/19 16:41 Dose: 130 mls/hr Documented by: [id number] Methylene Blue (Provayblue 0.5%) Confirm Administered Dose 10 ml .ROUTE .STK-MED ONE Stop: 03/14/19 16:17 Last Admin: 03/14/19 18:28 Dose: 10 ml Documented by: [id number] Ondansetron HCl (Zofran) 4 mg IV NOW STA Stop: 03/14/19 13:10 Last Admin: 03/14/19 13:35 Dose: 4 mg Documented by: [id number] Medical Decision Making Differential Diagnosis The differential diagnosis includes: hypotension, anemia, uterine bleeding, post-op bleeding, coagulopathy, and dehydration. Medical Records Attestation: I reviewed the patient's medical records. Home Medications Current Medication List: was personally reviewed by me Laboratory Data Attestation: I reviewed the patient's lab results. Result diagrams: 03/14/19 13:20 03/14/19 13:20 Lab Results 03/14/19 03/14/19 03/14/19 Range/Units 13:20 13:20 13:20 WBC 10.11 (4.8-10.8) K/uL RBC 4.34 (4.2-5.4) M/uL Hgb 12.6 (12.0-16.0) g/dL POC Hgb (12.0-16.0) g/dl Hct 38.6 (37-47) % POC Hct (37-47) % MCV 88.9 (80-100) fL MCH 29.0 (25-34) pg MCHC 32.6 (32-36) g/dL RDW Std Deviation 45.1 (36.4-46.3) fL RDW Coeff of Hasmukh 13.8 (11.5-14.5) % Plt Count 227 (130-400) K/uL MPV 11.1 H (7.4-10.4) fL Immature Gran % (Auto) 0.1 % Neut % (Auto) 53.2 % Lymph % (Auto) 37.2 % Spink % (Auto) 7.1 % Eos % (Auto) 2.3 % Baso % (Auto) 0.1 % Immature Gran # (Auto) 0.01 (0.00-0.02) K/uL Neut # (Auto) 5.38 (1.4-6.5) K/uL Lymph # (Auto) 3.76 H (1.2-3.4) K/uL Spink # (Auto) 0.72 H (0.11-0.59) K/uL Eos # (Auto) 0.23 (0-0.5) K/uL Baso # (Auto) 0.01 (0-0.2) K/uL PT 10.9 (9.0-12.0) Seconds INR 1.1 (0.9-1.1) APTT 22.7 (21.0-31.0) Seconds PTT Ratio 0.8 POC Sodium (135-144) mEq/L Sodium 140 (136-145) mmol/L POC Potassium (3.3-5.0) mEq/L Potassium 2.9 L (3.5-5.1) mmol/L POC Chloride (101-112) mEq/L Chloride 104 (98-107) mmol/L Carbon Dioxide 23 (21-32) mmol/L POC Total CO2 (24-31) mEq/l Anion Gap 13.0 H (3-11) POC Anion Gap (16-25) mmol/L POC BUN (7-18) mg/dl BUN 23 H (7-18) mg/dl Creatinine 1.05 (0.6-1.2) mg/dl POC Creatinine (0.6-1.3) mg/dl Est Cr Clr Drug Dosing 65.2 ml/min Est GFR ( Amer) 67.8 Est GFR (Non-Af Amer) 58.5 BUN/Creatinine Ratio 21.8 H (10-20) Glucose 140 H (70-99) mg/dl POC Glucose (other) (70-99) mg/dl Calcium 9.1 (8.5-10.1) mg/dl POC Ioniz Calcium Karlie (1.12-1.32) mmol/l Magnesium 2.1 (1.8-2.4) mg/dl Total Bilirubin 0.7 (0.2-1) mg/dl AST 13 L (15-37) U/L ALT 27 (12-78) U/L Alkaline Phosphatase 56 (45-117) U/L Troponin I < 0.015 (0-0.045) ng/ml Total Protein 7.2 (6.4-8.2) gm/dl Albumin 3.7 (3.4-5.0) gm/dl Globulin 3.5 (2.5-4.0) gm/dl Albumin/Globulin Ratio 1.1 (0.9-2) TSH 6.470 H (0.300-4.500) uIu/ml Free T4 1.21 (0.8-1.6) ng/dl Blood Type Antibody Screen Crossmatch 10/13/19 10/13/19 Range/Units 13:21 13:29 WBC (4.8-10.8) K/uL RBC (4.2-5.4) M/uL Hgb (12.0-16.0) g/dL POC Hgb 12.6 (12.0-16.0) g/dl Hct (37-47) % POC Hct 37 (37-47) % MCV (80-100) fL MCH (25-34) pg MCHC (32-36) g/dL RDW Std Deviation (36.4-46.3) fL RDW Coeff of Hasmukh (11.5-14.5) % Plt Count (130-400) K/uL MPV (7.4-10.4) fL Immature Gran % (Auto) % Neut % (Auto) % Lymph % (Auto) % Spink % (Auto) % Eos % (Auto) % Baso % (Auto) % Immature Gran # (Auto) (0.00-0.02) K/uL Neut # (Auto) (1.4-6.5) K/uL Lymph # (Auto) (1.2-3.4) K/uL Spink # (Auto) (0.11-0.59) K/uL Eos # (Auto) (0-0.5) K/uL Baso # (Auto) (0-0.2) K/uL PT (9.0-12.0) Seconds INR (0.9-1.1) APTT (21.0-31.0) Seconds PTT Ratio POC Sodium 139 (135-144) mEq/L Sodium (136-145) mmol/L POC Potassium 2.9 L (3.3-5.0) mEq/L Potassium (3.5-5.1) mmol/L POC Chloride 103 (101-112) mEq/L Chloride (98-107) mmol/L Carbon Dioxide (21-32) mmol/L POC Total CO2 23 L (24-31) mEq/l Anion Gap (3-11) POC Anion Gap 17.0 (16-25) mmol/L POC BUN 21 H (7-18) mg/dl BUN (7-18) mg/dl Creatinine (0.6-1.2) mg/dl POC Creatinine 1.0 (0.6-1.3) mg/dl Est Cr Clr Drug Dosing ml/min Est GFR ( Amer) Est GFR (Non-Af Amer) BUN/Creatinine Ratio (10-20) Glucose (70-99) mg/dl POC Glucose (other) 148 H (70-99) mg/dl Calcium (8.5-10.1) mg/dl POC Ioniz Calcium Karlie 1.17 (1.12-1.32) mmol/l Magnesium (1.8-2.4) mg/dl Total Bilirubin (0.2-1) mg/dl AST (15-37) U/L ALT (12-78) U/L Alkaline Phosphatase (45-117) U/L Troponin I (0-0.045) ng/ml Total Protein (6.4-8.2) gm/dl Albumin (3.4-5.0) gm/dl Globulin (2.5-4.0) gm/dl Albumin/Globulin Ratio (0.9-2) TSH (0.300-4.500) uIu/ml Free T4 (0.8-1.6) ng/dl Blood Type A Positive Antibody Screen NEGATIVE Crossmatch See Detail Imaging Data Radiologist's Impression: Radiology results as stated below per my review and the radiologist's interpretation: EXAMINATION: PELVIC ULTRASOUND (endovaginal scanning only) CLINICAL HISTORY: vaginal bleeding COMPARISON STUDY: None FINDINGS: The uterus measured 8.8 x 4.5 x 6.7 cm. There is a 3.3 cm anterior fibroid.. The endometrial stripe measured 3 mm. Neither ovary was visualized. There was no evidence of pathologic free pelvic fluid. IMPRESSION: 1. 33 mm myometrial mass likely representing a fibroid 2. 3 mm endometrial stripe 3. Nonvisualization of the ovaries. Electronically signed by: Alexis Mesa M.D. 03/14/2019 2:36 PM ECG Data Attestation: I personally reviewed and interpreted this ECG as follows: Indication: abdominal pain Rate (beats per minute): 66 Rhythm: normal sinus (with artifact) Findings: + other (poor R wave progression, QTC 419); no ST elevation and no ectopy Blood Pressure Blood Pressure Findings: Elevated blood pressure Blood Pressure Disposition: further management by hospitalist (further manage ment by Dr. Johnson) MDM Narrative There is no leukocytosis or worrisome anemia. No coagulopathy. Renal panel testing does show a slightly low potassium at 2.9. No kidney failure. No worrisome liver enzyme elevation. Patient does have a slightly elevated TSH but the T4 is normal. Blood type returned at A+. EKG shows a sinus rhythm, no acute ischemia. Cardiac enzyme testing x1 is not consistent with acute cardiac injury. On exam, the patient was in moderate distress, she was pale, her skin was cool to the touch. She had just passed out while in the ED waiting room. She had significant vaginal bleeding on exam, her clothes were soaked with blood. The patient was rapidly assessed. She received IV saline, 1 L. She received IV Tylenol for pain. She received IV Zofran for nausea. Blood was ordered for transfusion but held as the hemoglobin returned within the normal range. The patient is looking improved. Her color has improved. She feels better, she has less discomfort across the pelvis and the vaginal bleeding has slowed. I did speak with Dr. Johnson of CAR DUMPER OPERATOR. The patient was seen in the ED by OB. The patient is being hospitalized, she will likely undergo a hysterectomy. The patient is likely having uterine bleeding from the site of the polyp removal. Impression & Plan Uterine hemorrhage, Syncope, Lightheadedness Critical Care Time Critical Care Time: Yes Total Critical Care Time: 46 I have personally spent 46 minutes of critical care time in the direct management of this patient. This includes bedside care, interpretation of diagnostic studies, and testing, discussion with consultants, patient, and family members, and other required patient management activities. This 46 minutes is in excess of all separately billable procedures. Discharge Plan Visit Data Chief Complaint: Urinary Symptoms Stated Complaint: BLOOD CLOTS IN URINE ED Provider: Edgar Rodriguez Discharge Problem: Uterine hemorrhage, Syncope, Lightheadedness Patient Disposition: Still a Patient Discharge Instructions Interventions: ED Discharge Assessment Last Done: 03/14/19 15:45 Forms Stand Alone Forms: My [employer] Prescriptions Prescriptions: No Action losartan-hydrochlorothiazide 100-12.5 mg Tablet 1 tab PO QAM RF: 0 ibuprofen [Advil] 200 mg Tablet 600 mg PO Q6H RF: 0 Referrals Referrals: Henry Avila [Primary Care Provider] - Discharge Problem: Syncope Qualifiers: Syncope type: unspecified Qualified Code(s): R55 - Syncope and collapse The scribe's documentation has been prepared under my direction and personally reviewed by me in its entirety. I confirm that the note above accurately reflects all work, treatment, procedures, and medical decision making performed by me.
[2019-03-14 13:54] LABS: INR 1.1 (0.9-1.1); Partial Thromboplastin Ratio 0.8; Partial Thromboplastin Time 22.7 Seconds (21.0-31.0); Prothrombin Time 10.9 Seconds (9.0-12.0)
[2019-03-14 13:59] LABS: Alanine Aminotransferase 27 U/L (12-78); Albumin Level 3.7 gm/dl (3.4-5.0); Aspartate Aminotransferase 13 U/L (15-37); BUN Creatinine Ratio 21.8 (10-20); Blood Urea Nitrogen 23 mg/dl (7-18); Calcium 9.1 mg/dl (8.5-10.1); Carbon Dioxide 23 mmol/L (21-32); Chloride 104 mmol/L (98-107); Creatinine Clr Calc Pharmacy 65.2 ml/min; Est GFR (African American) 67.8; Est GFR (Non-African American) 58.5; Glucose 140 mg/dl (70-99); Magnesium 2.1 mg/dl (1.8-2.4); Potassium 2.9 mmol/L (3.5-5.1); Sodium 140 mmol/L (136-145)
[2019-03-14 14:09] LABS: Albumin Globulin Ratio 1.1 (0.9-2); Alkaline Phosphatase 56 U/L (45-117); Bilirubin,Total 0.7 mg/dl (0.2-1); Globulin 3.5 gm/dl (2.5-4.0); Total Protein 7.2 gm/dl (6.4-8.2); Troponin I < 0.015 ng/ml (0-0.045)
[2019-03-14 14:22] LABS: T4 Free Thyroxine 1.21 ng/dl (0.8-1.6)
--- NOTE | 2019-03-14 14:31 | Anesthesiology Consultation ---
Date of Service March 14, 2019 Assessment & Plan (1) Encounter for pre-operative examination: Chart Review Chart Review: Acceptable Risk for Surgery Consults Requested none ASA [id number] Proposed Anesthesia Anesthesia Type: General Risk / Benefits Reviewed With: PT / POA / Parent / Guardian, Accepts Plan and Informed Consent Obtained History Surgery Operation Date: 03/14/19 15:30 Proposed Procedures p Total Laparoscopic Hysterectomy - Shruthi Johnson MD, FACOG Height/Weight Height: 5 ft 1 in Weight: 105 kg Allergies Allergy/AdvReac Type Severity Reaction Status Date / Time neomycin Allergy Unknown RASH Verified 03/14/19 14:18 tobramycin Allergy Unknown Swelling Verified 03/14/19 14:18 of the Eye, REDNESS, ITCHINESS AND LOSS OF VISION lisinopril AdvReac Unknown Cough Verified 03/14/19 14:18 Medications Home Medications Medication Instructions Recorded Confirmed Last Taken losartan-hydrochlorothiazide 1 tab PO QAM 02/15/19 03/14/19 03/14/19 ibuprofen [Advil] 600 mg PO Q6H 03/14/19 03/14/19 03/14/19 NPO Date Last Intake of Fluids: 03/14/19 Time Last Intake of Fluids: 10:45 Date Last Intake of Solids: 03/14/19 Time Last Intake of Solids: 10:45 Past Medical History Medical History Radius fracture Bartholin cyst (Acute) hx and removal of bartholin cyst High blood pressure History of migraine headaches Morbid obesity Snores Witnessed apneic events. Patient states she was not able to finish testing for sleep apnea due to claustrophobia with the wires during testing. She states with the limited testing they did, they suspected sleep apnea. She s tates since then she has lost weight and had improvement in symptoms. Exercise / Class Metabolic Activity II 4-5 Yardwork/Stairs/Walk up hill Past Family History Family History Father Family history of diabetes mellitus (DM) Past Surgical History Surgical History Status post hysteroscopic polypectomy History of arthroscopy of left knee History of eye surgery RIGHT EYE History of lumpectomy of left breast + seed wart removal from head done at same time History of tubal ligation Status post trigger finger release Past Anesthesia History No Hx of Anesthesia Complications and No Family Hx of Anesthesia Complications History of PONV No Hx of PONV and No Hx of Motion Sickness Social History Smoking Status: Never smoker Hx Alcohol Use: No Hx Substance Use: No substance use type: does not use Physical Exam Vital Signs Last Vital Signs Temp 97.5 F L 03/14/19 13:14 Pulse 83 03/14/19 15:45 Resp 18 03/14/19 15:45 BP 178/83 H 03/14/19 15:45 Pulse Ox 99 03/14/19 15:45 ENMT Mouth: no dentition abnormality Thyromental Distance: > or= 3.5 Finger Breadths Mallampati Class: III Neck normal visual inspection Respiratory normal respiratory effort Auscultation: lungs clear to auscultation bilaterally Cardiovascular Rate/Rhythm: regular rate and regular rhythm Testing Laboratory Results 03/14/19 13:20 03/14/19 13:20 PT 10.9 Seconds (9.0-12.0) 03/14/19 13:20 INR 1.1 (0.9-1.1) 03/14/19 13:20 APTT 22.7 Seconds (21.0-31.0) 03/14/19 13:20 Blood Type A Positive 03/14/19 13:21 Antibody Screen NEGATIVE 03/14/19 13:21 03/14/19 13:29 POC Glucose (other) 148 H Electrocardiogram Date: 03/14/19 Normal sinus rhythm, rate 66 bpm Septal infarct , age undetermined Abnormal ECG When compared with ECG of 18-FEB-2019 11:05, Questionable change in QRS duration Septal infarct is now Present Echocardiogram Date: 02/06/17 EF: 60-65% LV Function: normal RWMA: + none Other Findings: + LVH (mild) and + diastolic dysfunction (grade 1)
--- NOTE | 2019-03-14 14:38 | Ultrasound Report ---
EXAMINATION: PELVIC ULTRASOUND (endovaginal scanning only) CLINICAL HISTORY: vaginal bleeding COMPARISON STUDY: None FINDINGS: The uterus measured 8.8 x 4.5 x 6.7 cm. There is a 3.3 cm anterior fibroid.. The endometrial stripe measured 3 mm. Neither ovary was visualized. There was no evidence of pathologic free pelvic fluid. IMPRESSION: 1. 33 mm myometrial mass likely representing a fibroid 2. 3 mm endometrial stripe 3. Nonvisualization of the ovaries. Electronically signed by: Alexis Mesa M.D. 03/14/2019 2:36 PM
[2019-03-14] MEDS ORDERED: fentaNYL citrate 100 MCG/2 ML VIAL ONE ×6 (14:39→19:21)
[2019-03-14] MEDS ORDERED: LIDOCAINE HCL 2% 2 ML VIAL/AMP(20MG/ML) INFIL ONE (14:39)
[2019-03-14] MEDS ORDERED: SUCCINYLCHOLINE CHLORIDE 20 MG/ML 10 ML VIAL ONE (14:39)
[2019-03-14] MEDS ORDERED: PROPOFOL IV EMULSION 10 MG/ML 20 ML VIAL IV ONE ×2 (14:39→18:35)
--- NOTE | 2019-03-14 14:44 | OB/GYN Consultation ---
Date of Consultation March 14, 2019 Assessment & Plan (1) Postoperative vaginal bleeding following genitourinary procedure: (2) Status post hysteroscopic polypectomy: Discussed with patient and spouse that I am concerned about the on and off heavy flow. I did try to see if bedside us could identify a possible pumper in uterus as I suspect this bleeding is result of recent surgery. That us was not yielding except for appearance of a hypervascular fundal myoma with ? collection nearby. Lining was not full of blood. I really do not feel confidant that a bleeding vessel could be identified and managed hysteroscopically and recommend definitive hysterectomy. I feel the source of her bleeding is unknown and this surgery would be definitive as far as stopping the bleeding and may be yielding of cause. I do not feel medical management would be helpful. I can place a andrews in uterus to temporize a bleeder but this would only be temporary. Patient agrees. She accepts definitive surgery. OR and anesthesia notified. Consent reviewed and signed. Patient prefers ovarian conservation if normal. Collaborated with colleagues including her surgeon from 03/05/19 and feel this is best option given her on and off heavy bleeding, ? cause and syncope. I suspect her hemoglobin will drift down based on amount of blood suggested by the staining up and down her legs and perineum. I did not appreciate alot of uterine descent on exam and despite her vaginal deliveries, if no reasonable descent noted with eua, will proceed with open hysterectomy. Patient aware. Also aware that if cancer found on final pathology may need to undergo more surgeries for staging and still desires conservative surgery for now ie. no removal of ovaries. The procedure is laparoscopic assisted vaginal hysterectomy, possible open hysterectomy, bilateral salpingectomies, possible removal of one or both ovaries, possible cystoscopy. History of Present Illness Reason for Consultation: vaginal bleeding, syncope Requesting Physician: Dr Rosado Attending Physician: Shruthi Johnson MD History of Present Illness 58yo with cc of heavy vaginal bleeding who presents to ER and I am asked to see on consult by Dr. Rosado. Patient is known to our group seeing Dr. Peraza. On 03/05/19 underwent a d&c, h ysteroscopy, polyp resection and cervical biopsies due to postmenopausal bleeding, known lesion and yvette pap. The findings overall were polyp with simple hyperplasia without atypia. Otherwise atrophic endometrium and no malignancy on cervical biopsies. She states she was recovering well and unfortunately fell on Fri and came to Er and diagnosed with arm fracture. On Friday morning, noted bright red bleeding while on commode and called me. She started advil cyclically and noted bleeding subsided. This am called me again noting palm size maroon clots every 30-45min. No pain. Some bright red bleeding as well. Advised to come to ER and she was reluctant. She had stopped the advil, so recommended she restart that and see what happens. I was called urgently by ER md as pt was in waiting room, sitting in wheel chair with notable blood "everywhere" and syncopal. Upon my arrival in ER room, she was lying down and feeling better. They were trying to get IV access. Her spouse was with her and noted sudden large onset heavy bleeding, all over her legs while in the car on her way here and severe cramping. This was first time patient had cramping with the bleeding. She notes 4 vaginal deliveries. On was a breech vaginal delivery. She is unsure when women in her family have menopause due to hysterectomies but never really had vasomotor symptoms and unclear when she had no bleeding x 12months. Allergies Allergy/AdvReac Type Severity Reaction Status Date / Time neomycin Allergy Unknown RASH Verified 03/14/19 14:18 tobramycin Allergy Unknown Swelling Verified 03/14/19 14:18 of the Eye, REDNESS, ITCHINESS AND LOSS OF VISION lisinopril AdvReac Unknown Cough Verified 03/14/19 14:18 Home Medications Home Medications Medication Instructions Recorded Confirmed Type losartan-hydrochlorothiazide 1 tab PO QAM 02/15/19 03/14/19 History ibuprofen [Advil] 600 mg PO Q6H 03/14/19 03/14/19 History Patient History Medical History Radius fracture Bartholin cyst (Acute) hx and removal of bartholin cyst High blood pressure History of migraine headaches Morbid obesity Snores Witnessed apneic events. Patient states she was not able to finish testing for sleep apnea due to claustrophobia with the wires during testing. She states with the limited testing they did, they suspected sleep apnea. She states since then she has lost weight and had improvement in symptoms. 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 Genitourinary: + abnormal vaginal bleeding; no dysuria Musculoskeletal: as per Subjective / HPI Neurologic: recent fall with arm fx, worried that jan her into bleeding. Physical Exam Constitutional: WD/WN, vitals as above no acute distress and not ill appearing Gastrointestinal (Abdomen): Percussion/Palpation: abdomen soft (obese); abdomen nontender and no guarding Skin: bilateral legs and perineum stained to calves with blood, red. Neurologic: grossly normal Psychiatric: A+Ox3, euthymic affect Genitourinary: Speculum/Bimanual Exam: normal appearance of the vagina and normal appearance of the cervix (no bleeding sites. no active blood from os); no cervical lesions Results & Data Vital Signs (Past 12 Hours) Vital Signs Temp Pulse Resp BP Pulse Ox 03/14/19 13:17 100 03/14/19 13:14 97.5 F L 67 20 161/64 H 99 PG Care Time/CCT Total # of Minutes Spent Total Time Spent with Patient: Total time spent is greater than 50% in coordination of care (as documented) at patient's floor/unit and/or counseling patient:
[2019-03-14] MEDS ORDERED: ATROPINE SULFATE 0.1 MG/ML 10ML SYR IV PRN (16:02)
[2019-03-14] MEDS ORDERED: HYDROmorphone INJ 1 MG/ML SYRINGE IV PRN (16:02)
[2019-03-14] MEDS ORDERED: ONDANSETRON INJ 2 MG/ML 2 ML VIAL IV PRN ×2 (16:02→19:23)
[2019-03-14] MEDS ORDERED: ePHEDrine sulfate 50 MG/ML AMP IV PRN (16:02)
[2019-03-14] MEDS ORDERED: METHYLENE BLUE 0.5% 10 ML VIAL ONE (16:16)
[2019-03-14] MEDS ORDERED: BUPIVACAINE 0.5 % 5 MG/1 ML MPF 30ML VIAL ONE (16:16)
[2019-03-14] MEDS ORDERED: CEFAZOLIN 250 MG/ML 1 GM VIAL ONE (16:38)
[2019-03-14] MEDS ORDERED: ONDANSETRON INJ 2 MG/ML 2 ML VIAL ONE ×2 (16:46→19:21)
[2019-03-14] MEDS ORDERED: PHENYLEPHRINE 100MCG/ML 5ML SYR ONE (17:01)
[2019-03-14] MEDS ORDERED: CEFAZOLIN 3000MG 72.5 ML IV ONE (17:07)
[2019-03-14] MEDS ORDERED: ROCURONIUM BROMIDE 10 MG/ML 5 ML VIAL ONE (18:34)
[2019-03-14] MEDS ORDERED: NEOSTIGMINE METHYLSULFATE 5 MG/5 ML SYR ONE (18:42)
[2019-03-14] MEDS ORDERED: GLYCOPYRROLATE 0.2 MG/ML VIAL ONE (18:42)
--- NOTE | 2019-03-14 19:06 | Post Operative Brief Note ---
PG Immediate Post Op with CF Date of Surgery March 14, 2019 Pre & Post Diagnosis Operation Date: 03/14/19 15:30 Pre-Op Diagnosis: 1. Acute vaginal bleeding. 2. Recent polypectomy 3. Fibroid uterus Post-Op Diagnosis: same I identified the patient and participated in the time-out.: Yes Procedure Operation Date: 03/14/19 15:30 Actual Procedures p Total Abdominal Hysterectomy, Bilateral Salpingectomies, Cystoscopy(Not Applicable) - Shruthi Johnson MD, FACOG Surgeon Shruthi Johnson MD, FACOG Needle Loom Weaver Stu Estimated Blood Loss 25 Findings Consistent with Post-Op Diagnosis (uterus about 10wk size, multiple subserosal fibroids noted. ovaries and tubes normal bilaterally, cysto findings with normal bladder filling and normal ureteral jets) Fluids 2500 Specimens Specimen Description: A. Uterus, Cervix B. Left Fallopian Tube C. Right Fallopian Tube Drains Garces Catheter Anesthesia Type General Complications none Disposition Accompanied Patient To Recovery: No Disposition: Recovery Room
[2019-03-14] MEDS: fentaNYL citrate 100 MCG/2 ML VIAL IV PRN ×4 (19:21→19:36)
--- NOTE | 2019-03-14 19:21 | Anesthesiology Progress Note ---
Date of Service March 14, 2019 Anesthesia Post Procedure Vital Signs Vital Signs: Temp Pulse Resp BP Pulse Ox 03/14/19 15:45 83 18 178/83 H 99 03/14/19 14:30 72 30 H 194/87 H 96 03/14/19 14:03 83 33 H 03/14/19 13:30 56 L 19 99 03/14/19 13:17 100 03/14/19 13:14 97.5 F L 67 20 161/64 H 99 03/14/19 13:13 66 23 97 03/14/19 13:09 63 22 161/64 H 99 Pain Intensity Lower Abdomen: Pain Intensity: 3 Transfer of Care Handoff Completed per policy Notes Mental Status: alert / awake / arousable and participated in evaluation Patient Amnestic to Procedure: Yes Nausea / Vomiting: adequately controlled Pain: adequately controlled Airway Patency, RR, SpO2: stable & adequate BP & HR: stable & adequate Hydration State: stable & adequate Anesthetic Complications: no major complications apparent and Pt Satisfied with anesthetic care
[2019-03-14] MEDS ORDERED: ZOLPIDEM TARTRATE 5 MG TAB PO PRN (19:23)
[2019-03-14] MEDS ORDERED: ACETAMINOPHEN 325 MG TAB PO PRN (19:23)
[2019-03-14] MEDS ORDERED: KETOROLAC 30 MG/ML VIAL IV PRN (19:28)
[2019-03-14] MEDS ORDERED: MORPHINE SULFATE PCA 30 MG/30 ML IV SCH (19:30)
--- NOTE | 2019-03-14 19:43 | Operative Report ---
PG Post Operative Report Pre & Post Diagnosis Operation Date: 03/14/19 15:30 Pre-Op Diagnosis: Acute vaginal bleeding, s/p recent endometrial polypectomy, uterine fibroids. Post-Op Diagnosis: same I identified the patient and participated in the time-out.: Yes Procedure Operation Date: 03/14/19 15:30 Actual Procedures p Total Abdominal Hysterectomy, Bilateral Salpingectomies, Cystoscopy(Not Applicable) - Shruthi Johnson MD, FACOG Surgeon Shruthi Johnson MD, FACOG Apprentice Cook Stu Estimated Blood Loss 25 Findings Consistent with Post-Op Diagnosis (uterus about 10 week size, subserosal fibroid on anterior right uterus and left fundal area. bilateral ovaries and fallopian tubes are normal. cystoscopy findings with normal bladder filling and normal ureteral jets. ) Fluids 2500 Specimens uterus, cervix, bilateral fallopian tubes Drains andrews Anesthesia Type General Complications none Disposition Accompanied Patient To Recovery: No Disposition: Recovery Room Indications 58yo with cc of acute vaginal bleeding in background of recent gynecologic endometrial polypectomy and known fibroid uterus. Presented to Er with acute bleeding and syncope. Please see H&P for more detail. Description of Procedure Patient was taken to the operating room and identified. After adequate general anesthesia was obtained she was placed in a frog-leg leg position on the OR table. There was no significant uterine descent. The decision was made to proceed with open hysterectomy. The vagina and abdomen were prepped and a Andrews catheter was placed under sterile conditions. The patient was placed in the supine position. Due to a past history of left arm injury and her recent right arm injury, her arms were positioned as appropriate. The patient was then draped in the usual fashion. Knife was used to create a Pfannenstiel skin incision was carried down to the underlying layer fascia. Fascia was nicked in the midline using Bovie cautery and this opening was extended laterally using Bovie cautery. Mart clamps were placed on the superior and inferior aspects of the fascial incision tenting upward and the underlying rectus muscles were dissected off the overlying fascia using Bovie cautery. The peritoneal cavity was entered into by elevating the tissue with 2 hemostats and entering the cavity sharply. This opening was extended superiorly and inferiorly with direct visualization of the bladder. This opening was then stretch. The O'Silvio- O'Berg retractor was placed. The patient was put in Trendelenburg position. The bowel was packed away from the planned operative sites. The retractor was then placed holding the bowel back and a bladder blade was also placed. The uterus was identified and grasped on the bilateral cornu using Shaina clamps. The right round ligament was identified. It was elevated using a Sheldon clamp and suture transfixed with 0 Vicryl. It was tagged. Bovie was then used to transect the round ligament and the anterior and posterior leaves of the broad ligament were opened up into. A bladder flap was begun anteriorly towards the midline. The posterior leaves of the broad ligament were further opened up into and with blunt dissection attempt was made to visualize the ureter but this was difficult. There was a lot of billowing fat and significant adipose obscuring the view. A clear space was the made beneath the uterine ovarian ligament and the Shaina clamp holding the right cornu was advanced to that opening. A second Shaina clamp was placed and the pedicle was transected. It was suture transfixed and free tied in the usual fashion with 0-vicryl. The stump of the fallopian tu be to its fimbriated end was resected using the Bovie cautery with elevation. It was sent as specimen. The uterine artery pedicle was skeletonized on this side. Attention was then turned to the left round ligament which was suture transfixed after being elevated and transected in a similar fashion. The anterior and posterior leaves of the broad ligament were opened up into and again the ureter was not well seen but thought to be coursing deep below the planned operative field. The clear space was opened up into beneath the utero- ovarian ligament on this side. The Shaina clamp on the left cornu was advanced to this opening. A second Shaina clamp was placed across this pedicle and it was transected. It was both suture transfixed and free tied with 0 Vicryl. The distal fallopian tube was also resected on the side using Bovie cautery and was sent as specimen. The uterine artery pedicle on this side was also skeletonized. Sandrine clamps were used to come across the uterine artery pedicle and a backbleeding Mart clamp was placed on each side. These pedicles were cut and then suture ligated with 0 Vicryl. The bladder flap was further developed anteriorly to push the bladder well away from the planned operative field. With sequential bites on the left and right using the Sandrine clamps, the remaining uterine artery pedicle and cardinal ligament attachments were taken down by first grasping the tissue and then transecting the tissue and suture ligating with 0 Vicryl. Once near the cervix the curved sandrine clamps were placed coming beneath the cervix. The specimen was then completely transected. These pedicles were suture transfixed with 0-vicryl and tagged. The cuff was then closed with 2 interrupted sutures of 0 Vicryl. Small bleeding sites the left of the cuff as well as at the cuff was elevated with pickups and a right angle clamp was placed to secure any bleeding. These pedicles were then stitched with 0 Vicryl for excellent hemostasis. At this point the pelvis was irrigated. There is small bleeding sites near the bladder reflection anteriorly and the bladder was teased away from this area. There was slight oozing and therefore a decision was made to proceed with placement of Surgicel across this suture line. This was only done after all of the pedicles were inspected and noted to be hemostatic. The pelvis had already been copiously irrigated. All the sutures were then cut and Surgicel was applied. All the packing was removed the patient was returned to the flat positioning and the retractors were removed. The fascia was then closed in a running fashion using 0 Vicryl. The subcutaneous fat was copiously irrigated and this tissue was reapproximated using 2-0 chromic. The skin was then closed in subcuticular fashion using 4-0 Vicryl. The patient was given IV methylene blue. Her incision have been dressed with Marcaine and was dressed and she was completely undraped. She was reprepped for cystoscopy after her legs were placed in yellowfin stirrups. Andrews catheter was removed for 650 cc of clear yellow urine. Cystoscopy took place with the findings as noted above. A new Andrews catheter was placed after the urethra was reprepped with Betadine. The patient was returned to the supine position and awoken from anesthesia. She was transported to recovery room in stable condition. All sponge lap needle counts were correct x2. I attest to the content of the Intraoperative Record and any orders documented therein. Any exceptions are noted below.
[2019-03-14] MEDS: LACTATED RINGER'S 1,000 ML IV SCH (20:00)
[2019-03-14] MEDS ORDERED: NALOXONE HCL 0.4 MG/1 ML VIAL/CARP IV PRN (20:42)
[2019-03-14] MEDS ORDERED: MoRPHine SULFATE 2 MG/ML CARP IV STA (21:10)
[2019-03-14] MEDS ORDERED: PROMETHAZINE HCL 25 MG in SODIUM CHLORIDE 0.9% 50 ML IV STA (21:54)
[2019-03-14] MEDS ORDERED: HYDROmorphone PCA 30 MG/30 ML IV PRN (21:57)
[2019-03-14] MEDS ORDERED: ACETAMINOPHEN 1,000 MG/100 ML VIAL IV PRN (22:16)
[2019-03-15] MEDS: LACTATED RINGER'S 1,000 ML IV SCH (03:56)
[2019-03-15 06:44] LABS: Basophils # (auto) 0.01 K/uL (0-0.2); Basophils % (auto) 0.1 %; Eosinophils # (auto) 0.01 K/uL (0-0.5); Eosinophils % (auto) 0.1 %; Hematocrit (blood only) 28.7 % (37-47); Hemoglobin 9.6 g/dL (12.0-16.0); Immature Granulocytes # (auto) 0.02 K/uL (0.00-0.02); Immature Granulocytes % (auto) 0.2 %; Lymphocytes # (auto) 1.19 K/uL (1.2-3.4); Lymphocytes % (auto) 9.5 %; Mean Corpuscular Hemoglobin 29.1 pg (25-34); Mean Corpuscular Hgb Conc 33.4 g/dL (32-36); Mean Platelet Volume 10.3 fL (7.4-10.4); Monocytes # (auto) 0.98 K/uL (0.11-0.59); Monocytes % (auto) 7.8 %; Neutrophils # (auto) 10.38 K/uL (1.4-6.5); Neutrophils % (auto) 82.3 %; Platelet Count 198 K/uL (130-400); RDW Coefficient of Variation 13.9 % (11.5-14.5); RDW Standard Deviation 44.6 fL (36.4-46.3); White Blood Count 12.59 K/uL (4.8-10.8)
[2019-03-15 07:08] LABS: BUN Creatinine Ratio 18.8 (10-20); Creatinine Clr Calc Pharmacy 76.9 ml/min; Est GFR (African American) 82.8; Est GFR (Non-African American) 71.4; Potassium 3.3 mmol/L (3.5-5.1)
[2019-03-15] MEDS ORDERED: POTASSIUM CHLORIDE / WTR 10 MEQ/100 ML PLCT IV ONE (07:49)
--- NOTE | 2019-03-15 08:09 | Anesthesiology Progress Note ---
Date of Service March 15, 2019 Anesthesia Post Procedure Vital Signs Vital Signs: Temp Pulse Pulse Pulse Resp BP BP 03/15/19 07:58 37.1 C 90 18 145/75 H 03/15/19 03:30 37.3 C 80 19 116/72 03/14/19 23:30 37.1 C 81 21 144/79 H 03/14/19 20:30 65 18 124/74 03/14/19 20:00 36.4 C L 60 16 163/80 H 03/14/19 19:50 36.2 C L 54 L 14 164/69 H 03/14/19 19:40 54 L 17 157/81 H 03/14/19 19:30 57 L 19 177/76 H 03/14/19 19:20 58 L 14 191/72 H 03/14/19 19:14 36.2 C L 73 18 157/62 H 03/14/19 15:45 83 18 178/83 H 03/14/19 14:30 72 30 H 194/87 H 03/14/19 14:03 83 33 H 03/14/19 13:30 56 L 19 03/14/19 13:17 03/14/19 13:14 36.4 C L 67 20 161/64 H 03/14/19 13:13 66 23 03/14/19 13:09 63 22 161/64 H Pulse Ox 03/15/19 07:58 96 03/15/19 03:30 96 03/14/19 23:30 97 03/14/19 20:30 100 03/14/19 20:00 100 03/14/19 19:50 100 03/14/19 19:40 100 03/14/19 19:30 100 03/14/19 19:20 100 03/14/19 19:14 100 03/14/19 15:45 99 03/14/19 14:30 96 03/14/19 14:03 03/14/19 13:30 99 03/14/19 13:17 100 03/14/19 13:14 99 03/14/19 13:13 97 03/14/19 13:09 99 Pain Intensity Lower Abdomen: Pain Intensity: 2 Notes Mental Status: alert / awake / arousable Patient Amnestic to Procedure: Yes Nausea / Vomiting: adequately controlled Pain: adequately controlled (pt complained that when she woke up from anesthesia her pain was severe; ) Airway Patency, RR, SpO2: stable & adequate BP & HR: stable & adequate Hydration State: stable & adequate Anesthetic Complications: no major complications apparent Notes: andrews catheter removed this am; pt has not voided yet
--- NOTE | 2019-03-15 08:18 | Gynecologic Progress Note ---
Date of Service March 15, 2019 Assessment & Plan (1) Postoperative vaginal bleeding following genitourinary procedure: (2) Uterine hemorrhage: doing well postop. labs reviewed. plan to adv diet, ambulate, stop debeader, use po pain meds. await spont void. reviewed surgical findings. will cancel her friday apt and plan 2 wk and 6wk check with me. given labs, will add K rider and recheck cbc and lytes in am. dressing can be removed later today or by am. i canceled her friday visit with prieto. Subjective pt doing well this am. pain control much better. denies pain. andrews out. no flatus yet. no n/v/cp or sob. aware of findings at surgery. hgb noted and reflective of her pre-Er description of bleeding. no further abdominal pain. Review of Systems Constitutional: no fever and no chills Gastrointestinal: no abdominal pain Musculoskeletal: has bilateral arm injuries, she says no pain Physical Exam Constitutional: WD/WN, vitals as above Respiratory: normal respiratory effort, lungs clear to auscultation Cardiovascular: Rate/Rhythm: regular rate and regular rhythm Gastrointestinal (Abdomen): Inspection/Auscultation: normal bowel sounds and + abdominal surgical incision (still with dressing, some drainage, intact. ) Percussion/Palpation: abdomen soft (obese); abdomen nontender, no guarding and no hernia Psychiatric: A+Ox3, euthymic affect Results & Data Vital Signs (Past 12 Hours) Vital Signs Temp Pulse Pulse Resp BP Pulse Ox 03/15/19 07:58 98.8 F 90 18 145/75 H 96 03/15/19 03:30 99.1 F 80 19 116/72 96 03/14/19 23:30 98.8 F 81 21 144/79 H 97 03/14/19 20:30 65 18 124/74 100 PG Care Time/CCT Total # of Minutes Spent Total Time Spent with Patient: Total time spent is greater than 50% in coordination of care (as documented) at patient's floor/unit and/or counseling patient:
[2019-03-15] MEDS: OXYCODONE/ACETAMINOPHEN 5mg/325mg TAB PO PRN ×4 (09:03→21:49)
[2019-03-15] MEDS: LOSARTAN POTASSIUM 50 MG TAB PO SCH (09:04)
[2019-03-15] MEDS: IBUPROFEN 600 MG TAB PO PRN ×3 (09:04→21:49)
[2019-03-16] MEDS: OXYCODONE/ACETAMINOPHEN 5mg/325mg TAB PO PRN ×4 (03:13→17:23)
[2019-03-16 06:09] LABS: Hematocrit (blood only) 27.8 % (37-47); Hemoglobin 9.2 g/dL (12.0-16.0); Mean Corpuscular Hemoglobin 29.5 pg (25-34); Mean Corpuscular Hgb Conc 33.1 g/dL (32-36); Mean Corpuscular Volume 89.1 fL (80-100); Mean Platelet Volume 10.7 fL (7.4-10.4); Platelet Count 168 K/uL (130-400); RDW Coefficient of Variation 14.3 % (11.5-14.5); RDW Standard Deviation 46.8 fL (36.4-46.3); Red Blood Count 3.12 M/uL (4.2-5.4); White Blood Count 9.46 K/uL (4.8-10.8)
[2019-03-16 06:36] LABS: Potassium 3.2 mmol/L (3.5-5.1)
[2019-03-16] MEDS: LOSARTAN POTASSIUM 50 MG TAB PO SCH (08:14)
[2019-03-16] MEDS: IBUPROFEN 600 MG TAB PO PRN ×2 (08:15→17:22)
--- NOTE | 2019-03-16 08:24 | Gynecologic Progress Note ---
Date of Service March 16, 2019 Assessment & Plan (1) S/P hysterectomy: Doing well postoperatively after hysterectomy on Friday night. No vaginal bleeding, is eating/drinking well. Ambulating is a problem because of her injuries to her arms. She is feeling unsteady with this, as she has difficulty moving her arms and also has routine postop slow movement after abdominal surgery. She has an appointment tomorrow afternoon with orthopedic surgery for further evaluation. K+ is low today - will give PO potassium replacement. Will check potassium again tomorrow morning. Because of patient's ambulation difficulty and concerns with caring for herself prior to seeing orthopedic surgeon tomorrow, I think it is reasonable to keep her until tomorrow morning. She will need to see Dr Johnson in the office - this appointment has been scheduled for 03/29/19 at 12:45. Subjective 58yo POD#2 s/p total abdominal hysterectomy, bilateral salpingectomy. She is doing well postop today. Pain controlled, ambulating ok without weakness or dizziness. She is struggling a bit to ambulate because of her arm injuries from recent fall. Good urine output. Passing gas, but no bowel movement yet. Eating/drinking well. No nausea/vomiting. Review of Systems Review of Systems: All systems reviewed & are unremarkable except as noted in HPI & below Physical Exam Physical Exam: Gen: AAOx3 NAD Abd: soft, NTTP. Incision is clean/dry/intact. Ext: SCDs in place, no calf tenderness. Right arm is bruised and tender, with limited movement. Left arm is also tender and has slightly more movement, but less than normal. Results & Data Vital Signs (Past 12 Hours) Vital Signs Temp Pulse Resp BP 03/15/19 23:55 37.3 C 73 18 94/59 L
[2019-03-16] MEDS: POTASSIUM CHLORIDE PWD 20 MEQ PACK PO SCH (10:09)
[2019-03-17] MEDS: IBUPROFEN 600 MG TAB PO PRN ×2 (00:34→08:58)
[2019-03-17] MEDS: OXYCODONE/ACETAMINOPHEN 5mg/325mg TAB PO PRN ×3 (00:35→14:02)
[2019-03-17 06:25] LABS: Hematocrit (blood only) 27.5 % (37-47)
--- NOTE | 2019-03-17 06:46 | Gynecologic Progress Note ---
Date of Service March 17, 2019 Assessment & Plan (1) Postoperative vaginal bleeding following genitourinary procedure: (2) Uterine hemorrhage: (3) S/P hysterectomy: will d/c home. instructions reveiwed. hgb stable. chem profile not back. pt to call pcp today as needs rickie apt to see about bp meds and potassium. enc correction of constipation, with colace and miralax. f/u 2wks as scheduled. Subjective doing well. +flatus. no cp/sob. eating regular diet, voiding, ambulating in halls. seeing ortho for her arm fx today. ready to go home. Review of Systems Constitutional: no fever and no chills Gastrointestinal: + constipation Genitourinary: no dysuria and no abnormal vaginal bleeding Physical Exam Constitutional: WD/WN, vitals as above Respiratory: normal respiratory effort, lungs clear to auscultation Cardiovascular: Rate/Rhythm: regular rate and regular rhythm Gastrointestinal (Abdomen): Inspection/Auscultation: + abdominal surgical incision (c/d/i) Percussion/Palpation: abdomen soft; abdomen nontender Neurologic: grossly normal Psychiatric: A+Ox3, euthymic affect Results & Data Vital Signs (Past 12 Hours) Vital Signs Temp Pulse Resp BP 03/16/19 23:50 99.5 F 74 18 123/73 PG Care Time/CCT Total # of Minutes Spent Total Time Spent with Patient: Total time spent is greater than 50% in coordination of care (as documented) at patient's floor/unit and/or counseling patient:
[2019-03-17 07:00] LABS: BUN Creatinine Ratio 23.6 (10-20); Creatinine Clr Calc Pharmacy 81.5 ml/min; Est GFR (African American) 88.8; Est GFR (Non-African American) 76.6; Potassium 3.4 mmol/L (3.5-5.1)
[2019-03-17] MEDS: POTASSIUM CHLORIDE PWD 20 MEQ PACK PO SCH (08:55)
[2019-03-17] MEDS: LOSARTAN POTASSIUM 50 MG TAB PO SCH (08:55)
[2019-03-17] MEDS ORDERED: DOCUSATE SODIUM 100 MG CAP PO SCH ×2 (09:37→21:00)
--- NOTE | 2019-03-18 10:29 | Discharge Summary ---
Date of Service Date of admission: March 14, 2019 Date of discharge: March 17, 2019 Admission HPI Per Admitting Provider Admission diagnoses: acute uterine hemorrhage, postoperative vaginal bleeding following genitourinary procedure, h/o syncope Discharge diagnoses: same Discharge Data Consultations 03/14/19 13:34 ED Decision to Admit Stat Procedures Performed Operation Date: 03/14/19 15:30 Actual Procedures p Total Abdominal Hysterectomy, Bilateral Salpingectomies, Cystoscopy Hospital Course (1) Uterine hemorrhage: (2) Postoperative vaginal bleeding following genitourinary procedure: (3) Syncope: The patient was admitted on date as noted with above problems and taken to operating room where above procedures were performed. 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 Her postoperative course was complicated by recent bilateral arm fractures that made mobility difficult. She was seen during the course of her recovery by PT/OT and was given a cane. On postoperative day 3 she was tolerating a regular diet, voiding spontaneously without difficulty and ambulating without difficulty and was stable for discharge home. She was given appropriate pain medication prescriptions and advised of her reference investigator postoperative instructions and limitations. She was to followup in office in 2wks and was given time and date of appointment. She came to ER with low potassium and it improved with replacement and at one point on her normal dosing of losarten, her blood pressure seemed low and she thought she had symptoms like lightheadedness that were thought to be related. She did have hemoglobin of 9+ and it was stable postoperatively and thought to be related to the excessive bleeding she had prior to her ER arrival. She was advised to followup in next few days with PCP about her medications for her blood pressure and her potassium level. She was seeing orthopedics as well soon for her arm fractures which were only suffered after fall on prior friday from her presentation with bleeding. Pathology was pending at time of discharge and she was told she would be called with this when available.
== END 2019-03-17 14:30 | disposition home or self-care (01) | DRG 983 ==
LOC: ED 12:51 → 4S2 15:45
DX: N99.820 Postprocedural hemorrhage of a genitourinary system organ or structure following a genitourinary system procedure; D25.9 Leiomyoma of uterus, unspecified; Y83.8 Other surgical procedures as the cause of abnormal reaction of the patient, or of later complication, without mention of misadventure at the time of the procedure; Z88.1 Allergy status to other antibiotic agents